=== PATIENT | male | born 1965 | race Caucasian/White ===

== ENCOUNTER 2020-05-29 11:07 | Outpatient (REF) | payer OTHER, SELFPAY | END 2020-05-29 11:08 | disposition home or self-care (01) | LOC: HO.LAB 11:07 | PROVIDERS: PCP Internal Medicine; Visit Provider Internal Medicine | DX: Z20.828 Contact with and (suspected) exposure to other viral communicable diseases (principal) | CPT/HCPCS: C9803; U0003 ==

== ENCOUNTER 2021-08-15 07:12 | Outpatient (REF) | payer OTHER, SELFPAY ==
--- NOTE | ~2021-08-15 | XR_ITS ---
EXAMINATION: BILATERAL KNEES CLINICAL INFORMATION: Bilateral knee pain COMPARISON: None TECHNIQUE: 4 views each knee FINDINGS: Right: Tricompartment spurring is identified. Moderately severe medial knee joint narrowing is seen. Patellofemoral and lateral knee joints are maintained. No sizable effusion is seen. No fracture or dislocation recognized. Left: Moderately severe medial knee joint narrowing seen. Patellofemoral and lateral knee joints are maintained. Tricompartment spurring is seen. No fracture, dislocation or joint effusion recognized. XR/XR knee LT 2V IMPRESSION: Symmetric bilateral knee osteoarthritis.
--- NOTE | ~2021-08-15 | XR_ITS ---
EXAMINATION: BILATERAL KNEES CLINICAL INFORMATION: Bilateral knee pain COMPARISON: None TECHNIQUE: 4 views each knee FINDINGS: Right: Tricompartment spurring is identified. Moderately severe medial knee joint narrowing is seen. Patellofemoral and lateral knee joints are maintained. No sizable effusion is seen. No fracture or dislocation recognized. Left: Moderately severe medial knee joint narrowing seen. Patellofemoral and lateral knee joints are maintained. Tricompartment spurring is seen. No fracture, dislocation or joint effusion recognized. XR/XR knee RT 2V IMPRESSION: Symmetric bilateral knee osteoarthritis.
--- NOTE | ~2021-08-15 | XR_ITS ---
EXAMINATION: BILATERAL KNEES CLINICAL INFORMATION: Bilateral knee pain COMPARISON: None TECHNIQUE: 4 views each knee FINDINGS: Right: Tricompartment spurring is identified. Moderately severe medial knee joint narrowing is seen. Patellofemoral and lateral knee joints are maintained. No sizable effusion is seen. No fracture or dislocation recognized. Left: Moderately severe medial knee joint narrowing seen. Patellofemoral and lateral knee joints are maintained. Tricompartment spurring is seen. No fracture, dislocation or joint effusion recognized. XR/XR knee standing BI IMPRESSION: Symmetric bilateral knee osteoarthritis.
== END 2021-08-15 07:13 | disposition home or self-care (01) ==
LOC: HO.HOSX 07:12
PROVIDERS: Visit Provider Physician Assistant
DX: M17.0 Bilateral primary osteoarthritis of knee (principal)
CPT/HCPCS: 73560; 73565; 99202

== ENCOUNTER 2021-09-01 13:07 | Outpatient (REF) | payer OTHER, SELFPAY ==
--- NOTE | ~2021-09-01 | MR_ITS ---
EXAMINATION: MR KNEE WITHOUT CONTRAST, RIGHT CLINICAL INFORMATION: Right knee pain and swelling. Osteoarthritis. COMPARISON: None TECHNIQUE: MRI of the knee without contrast was performed using routine sequences on a high-field scanner. FINDINGS: MENISCI: Medial Meniscus: Near-complete tear of the posterior horn/root with a few inferior meniscal fibers remaining intact. Tearing measures up to 1.6 cm in ML dimension with medial extrusion of the meniscal body. Intrasubstance degenerative signal with a possible nondisplaced oblique inner margin tear of the meniscal body. Lateral Meniscus: Minimal inner margin fraying of the meniscal body. LIGAMENTS: Cruciate: Intact Collateral: Intact EXTENSOR MECHANISM: Intact ARTICULAR CARTILAGE/BONE: Patellofemoral Compartment: Lateral patellar facet articular cartilage signal heterogeneity and partial-thickness fissuring. Diffuse trochlear articular cartilage thinning with areas of near full-thickness loss. Small marginal osteophytes. Medial Compartment: Diffuse, full-thickness weightbearing articular cartilage loss with mild subchondral cystic change. Marginal osteophytes. Lateral Compartment: Lateral tibial plateau full-thickness articular cartilage fissuring. Small marginal osteophytes. JOINT FLUID AND BURSAE: Small joint effusion and trace Hidalgo's cyst. MR/MR knee RT wo con IMPRESSION: 1. Near-complete tear of the medial meniscus posterior horn/root with a few inferior meniscal fibers remaining intact. There is medial extrusion of the meniscal body with intrasubstance degenerative signal and a possible nondisplaced oblique inner margin tear. 2. Minimal inner margin fraying of the lateral meniscal body. 3. Severe medial as well as moderate patellofemoral and mild lateral compartment osteoarthritis. Small joint effusion and trace Hidalgo's cyst.
== END 2021-09-01 13:08 | disposition home or self-care (01) ==
LOC: HO.MRI 13:07
PROVIDERS: Visit Provider Physician Assistant
DX: M17.11 Unilateral primary osteoarthritis, right knee (principal)
CPT/HCPCS: 73721

== ENCOUNTER → 2021-09-11 08:40 | Outpatient (BNVA) | payer OTHER, SELFPAY | PROVIDERS: PCP Nurse Practitioner Family; Visit Provider Orthopaedic Surgery | DX: M17.0 Bilateral primary osteoarthritis of knee (principal) | CPT/HCPCS: 99212 ==

== ENCOUNTER → 2021-10-27 08:45 | Outpatient (BNVA) | payer OTHER, SELFPAY | PROVIDERS: PCP Nurse Practitioner Family; Visit Provider Orthopaedic Surgery | DX: Z13.89 Encounter for screening for other disorder (principal) ==

== ENCOUNTER 2021-11-19 09:45 | Outpatient (RCR) | payer OTHER, SELFPAY ==
--- NOTE | 2021-11-24 08:25 | MHC.PT.EP ---
[facility] [place] Office [place] Office [place] Office [address] Gautam Hernandez [address] [phone] F: [phone] F: [phone] F: [phone] F: [phone] Physical Therapy Plan of Care Date of Evaluation: Date of Surgery: 11/25/21 Diagnosis: PRE-OP TKA Assessment: Pt IS A PLEASANT 55 YO MALE WHO PRESENTS PRE-OP TOTAL KNEE REPLACEMENT. UPON EXAM HE DEMONSTRATES DECREASED ROM AND STRENGTH, ALTERED GAIT AND INCREASED PAIN. FUNCTIONAL LIMITATIONS INCLUDE DECREASED ABILITY TO PERFORM HOMEMAKING TASKS, WALKING LONG DISTANCES, STAIR CLIMBING. HE REPORTS DECREASED ABILITY TO PERFORM COMMUNITY AND RECREATIONAL ACTIVITIES, DISRUPTED SLEEP. Frequency and Duration: The patient will be seen 1-2 visits Short Term Goals: INITIATE HEP Longterm Goals: INDEPENDENT HEP Treatment Plan: Modalities to reduce pain, spasms and effusion. Manual therapy to restore motion and function. Therapeutic exercise to improve strength and flexibility. Neuromuscular re-education for posture and balance. Therapeutic activities to return to functional activities of daily living. Electronically signed by: YOUSIF WALKER PT, DPT Please sign and return to therapist. Thank you for your referral.
== END 2021-12-12 10:46 | disposition home or self-care (01) ==
LOC: HO.PT 09:45
PROVIDERS: PCP Nurse Practitioner Family; Visit Provider Orthopaedic Surgery
DX: M17.0 Bilateral primary osteoarthritis of knee (principal)
CPT/HCPCS: 97110; 97161

== ENCOUNTER → 2021-11-20 11:17 | Outpatient (BNVA) | payer OTHER, SELFPAY | PROVIDERS: PCP Nurse Practitioner Family; Visit Provider Physician Assistant | DX: Z01.818 Encounter for other preprocedural examination (principal); M17.11 Unilateral primary osteoarthritis, right knee | CPT/HCPCS: 99212 ==

== ENCOUNTER 2021-11-25 07:19 | Inpatient (IN) | payer OTHER, SELFPAY ==
[2021-10-27 10:07] LABS: MANUAL DIFF FLAG NO
--- NOTE | 2021-10-27 10:14 | ECG_ITS ---
Test Reason : z01.810 Blood Pressure : / mmHG Vent. Rate : 053 BPM Atrial Rate : 053 BPM P-R Int : 158 ms QRS Dur : 098 ms QT Int : 428 ms P-R-T Axes : 046 -34 057 degrees QTc Int : 401 ms Sinus bradycardia Left axis deviation Minimal voltage criteria for LVH, may be normal variant ( R in aVL ) Abnormal ECG When compared with ECG of 11-MAY-2017 10:03, No significant change was found Referred By: Rhys Nicolas Electronically Signed By:LIVIA DARNELL
[2021-10-27 10:16] LABS: Basophils Percent Auto 0.6 % (0-2); Eosinophils Absolute Auto 0.1 X10*3/uL (0.0-0.4); Eosinophils Percent Auto 1.3 % (0-4); Hematocrit 43.5 % (42.0-52.0); Hemoglobin 14.4 g/dl (14.0-18.0); Imm Gran Abs Auto 0.01 X10*3/uL (0.00-0.03); Imm Gran Pct Auto 0.1 % (0.0-0.4); Lymphocytes Absolute Auto 1.8 X10*3/uL (1.2-4.9); Lymphocytes Percent Auto 26.3 % (20-40); Mean Corpuscular HGB Conc 33.1 g/dl (31.0-36.0); Mean Corpuscular Hemoglobin 30.4 pg (27.0-33.0); Mean Platelet Volume 10.5 fL (9.4-12.4); Monocytes Absolute Auto 0.6 X10*3/uL (0.1-1.2); Monocytes Percent Auto 8.2 % (2-11); Neutrophils Absolute Auto 4.4 x10*3/uL (2.0-8.3); Neutrophils Percent Auto 63.5 % (45-73); Platelet Count 229 X10*3/uL (160-400); Red Blood Count 4.73 X10*6/uL (4.60-5.80); Red Cell Distribution Width 11.4 % (11.0-16.0); White Blood Count 6.9 X10*3/uL (4.8-10.8)
[2021-10-27 10:55] LABS: Anion Gap 11 (12-20); Blood Urea Nitrogen 12 mg/dL (9-16); Calcium 9.7 mg/dL (8.4-10.2); Carbon Dioxide 28 mmol/L (22-29); Chloride 104 mmol/L (96-108); Estimated Glomerular Filt Rate > 60; Glucose Random 88 mg/dL (60-115); Potassium 4.2 mmol/L (3.3-5.1); Sodium 139 mmol/L (135-145)
[2021-11-14 12:05] VITALS: BP 146/82; PULSE 70; RESP 20; O2SAT 97; BMI 34.7
--- NOTE | 2021-11-14 12:13 | P.CONAN_ITS ---
Documented by User: Cindy Loera NP 11/24/21 09:09 HPI - Anesthesia Eval Consult details Narrative: 55yo M for Right Knee Replacement Total 11/25/21 PCP cleared [facility] Active Problems Active Problems: All Active Problems (Updated 11/14/21 @ 12:03 by Zofia Bravo RN) Osteoarthritis of right knee (Acute) Bilateral primary osteoarthritis of knee (Acute) Past Medical History Medical History Asthma High blood pressure Family History Family history of problems with anesthesia: No Surgical History Surgical History History of umbilical hernia repair Hx of colonoscopy History of Problems with Anesthesia: No Social History Social History Are you a primary careers adviser to a significant other at home: No Do you presently have visiting nurse or other home services: No Patient Tobacco Use Status: Never used Tobacco Second Hand Smoke Exposure: No Use of substances other than those prescribed or required for medical reasons: No Currently Displaying Signs/Symptoms of Drug Intoxication Withdrawal: No Have you been hit, kicked, punched, or otherwise hurt by someone within the past year? 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 Asthma stable Meds Allergies Allergy/AdvReac Type Severity Reaction Status Date / Time No Known Allergies Allergy Verified 11/20/21 12:46 [No Known Allergies*] Home Medications Medication Instructions Recorded Confirmed Last Taken Type albuterol sulfate 90 mcg/actuation 2 puff inhalation Q4H PRN wheezing 08/15/21 11/13/21 Unknown History aerosol inhaler (Ventolin HFA) hydrochlorothiazide 25 mg tablet 25 mg PO QAM 08/15/21 11/13/21 Unknown History nabumetone 750 mg tablet 750 mg PO BID PRN pain 08/15/21 11/13/21 Unknown History olmesartan 5 mg tablet 1 tab PO QAM blood pressure 06/02/22 06/02/22 Unknown History Exam Exam Date and Time: November 14, 2021 1213 Height,Weight and Vital Signs: Height 6 ft 2 in Weight 122.47 kg Last Vital Signs Pulse 70 11/14/21 12:05 Resp 20 11/14/21 12:05 BP 146/82 H 11/14/21 12:05 Pulse Ox 97 11/14/21 12:05 Pertinent Lab Results Pertinent Lab Results: Laboratory Tests 10/27/21 10/27/21 10:06 10:06 WBC 6.9 RBC 4.73 Hgb 14.4 Hct 43.5 MCV 92.0 MCH 30.4 MCHC 33.1 RDW 11.4 Plt Count 229 MPV 10.5 Immature Gran % (Auto) 0.1 Neut % (Auto) 63.5 Lymph % (Auto) 26.3 [place] % (Auto) 8.2 Eos % (Auto) 1.3 Baso % (Auto) 0.6 Lymph # (Auto) 1.8 [place] # (Auto) 0.6 Eos # (Auto) 0.1 Baso # (Auto) 0.0 Abs Immat Gran (auto) 0.01 Absolute Neuts (auto) 4.4 Absolute Nucleated RBC 0.000 Nucleated RBC % (auto) 0.0 Sodium 139 Potassium 4.2 Chloride 104 Carbon Dioxide 28 Anion Gap 11 L BUN 12 Creatinine 0.99 Estim Creat Clear Calc TNP Estimated GFR > 60 Random Glucose 88 Calcium 9.7 Narrative Narrative: EKG 10/2021 Vent. Rate : 053 BPM ? ? Atrial Rate : 053 BPM ?? P-R Int : 158 ms? QRS Dur : 098 ms ? ? QT Int : 428 ms ? ? ? P-R-T Axes : 046 -34 057 degrees ?? QTc Int : 401 ms ? Sinus bradycardia Left axis deviation Minimal voltage criteria for LVH, may be normal variant ( R in aVL ) Abnormal ECG When compared with ECG of 11-MAY-2017 10:03, No significant change was found Repeat EKG at [facility] 11/2021 = NSR @ 78 Airway Mallampati Class: II TM Dist: >3cm Neck ROM: Full Partial: Upper Heart: RRR Lungs: CTAB Assessment and Plan Assessment Anesthesia Assessment: Anesthesia Plan Discussed and PAT Visit Final Anesthetic Review Family History of Problems with Anesthesia: No History of Problems with Anesthesia: No Documented by User: Roderick Tan MD 11/25/21 17:16 PMF Past Medical History Medical History Asthma High blood pressure Surgical History Surgical History History of umbilical hernia repair Hx of colonoscopy Social History Social History Are you a primary careers adviser to a significant other at home: No Do you presently have visiting nurse or other home services: No Patient Tobacco Use Status: Never used Tobacco Second Hand Smoke Exposure: No Use of substances other than those prescribed or required for medical reasons: No Currently Displaying Signs/Symptoms of Drug Intoxication Withdrawal: No Have you been hit, kicked, punched, or otherwise hurt by someone within the past year? 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 Meds Allergies Allergy/AdvReac Type Severity Reaction Status Date / Time No Known Allergies Allergy Verified 11/20/21 12:46 [No Known Allergies*] Home Medications Medication Instructions Recorded Confirmed Last Taken Type albuterol sulfate 90 mcg/actuation 2 puff inhalation Q4H PRN wheezing 08/15/21 11/13/21 Unknown History aerosol inhaler (Ventolin HFA) hydrochlorothiazide 25 mg tablet 25 mg PO QAM 08/15/21 11/13/21 Unknown History nabumetone 750 mg tablet 750 mg PO BID PRN pain 08/15/21 11/13/21 Unknown History olmesartan 5 mg tablet 1 tab PO QAM blood pressure 11/13/21 11/13/21 Unknown History Exam Airway Loose/Missing/Broken Teeth: Yes (Chipped teeth ) Assessment and Plan Assessment Anesthesia Assessment: Chart Reviewed Final Anesthetic Review NPO: Yes ASA Class: III Final Preanesthetic Review: Meds/Allgs Chart Reviewed, Consent Obtained/Reviewed and Anes Risks/Benef Reviewed Patient Risk: Intermediate Procedure Risk: Intermediate Anesthetic Plan Anesthetic Plan: Spinal and Regional Block Disposition: Inp. Admit - Standard Bed
[2021-11-14 15:11] LABS: MRSA Nasal PCR NEGATIVE (Negative); SA Nasal PCR NEGATIVE (Negative)
[2021-11-25] VITALS (12 sets, daily range): BP systolic 103–168; BP diastolic 60–92; PULSE 45–82; RESP 14–19; TEMP 36.1–36.9; O2SAT 95–99
--- NOTE | ~2021-11-25 | XR_ITS ---
EXAMINATION: XR KNEE, RIGHT CLINICAL INFORMATION: Right TKA. COMPARISON: None TECHNIQUE: Two views of the right knee. FINDINGS: There is a total right knee arthroplasty with prosthetic components in satisfactory alignment. There are immediate postoperative changes with gas and surgical michelle along the anterior knee. XR/XR knee RT 2V IMPRESSION: Status post total right knee arthroplasty with prosthetic components in satisfactory alignment.
[2021-11-25 08:15] LABS: Hematocrit 42.3 % (42.0-52.0); Hemoglobin 14.2 g/dl (14.0-18.0)
[2021-11-25 08:22] LABS: COVID-19 Test Negative (Negative); IDNOW Serial# 16C4AD1C
[2021-11-25] MEDS: Lactated Ringers 1,000 ML 100 ML IVCONT ×3 (08:45→23:41)
--- NOTE | 2021-11-25 11:22 | PHA.MEDREC ---
Pharmacy Consult ? Medication Reconciliation Pharmacy has reviewed the medication reconciliation compelted by nursing.
--- NOTE | 2021-11-25 11:48 | MHC.SHP ---
Pre-Procedural Eval Section A Date of Service: 11/25/21 The patient is an INPATIENT: No Changes since office visit: Yes Patient answered all questions; No Cold of Flu in the past 2 weeks, No New Medical Problems and No Changes in Medication The History & Physical has been completed within 30 days and I have reviewed it.: Yes Section B Chief Complaint: RT TKA Allergies: Allergies Allergy/AdvReac Type Severity Reaction Status Date / Time No Known Allergies Allergy Verified 11/20/21 12:46 [No Known Allergies*] Plan I have reviewed the history and physical and performed a pertinent physical examination on my patient. No changes have occurred unless specified.
--- NOTE | 2021-11-25 13:48 | P.BOP_ITS ---
Brief Operative Note Date of Service: 11/25/21 Pre-op diagnosis: Right knee arthritis Post-op diagnosis: same Procedure: Right TKA Implants: [place] [employer] press fit cruciate retaining 09/16/34 Surgeon: Rhys Nicolas MD Anesthesia: regional and spinal Was an Branch Director used for this Procedure?: Yes Branch Director: Farhana Bender Estimated blood loss (mL): 150 IV fluids (mL): 1,000 Pathology: other Condition: stable Disposition: PACU
[2021-11-25] MEDS: oxyCODONE HCl Immed Release 5 MG TABLET PO (14:55)
--- NOTE | 2021-11-25 15:27 | P.CONHOSP_ITS ---
History of Present Illness Data of Consult Service Date: 11/25/21 Requesting physician: Rhys Nicolas Primary Care Provider: Unknown Physician HPI 56-year-old man with history of asthma, hypertension admitted by orthopedic surgery and is postop right total knee arthroplasty. Surgery was unremarkable. Patient has been able to eat and drink without any nausea patient reports a moderate amount of pain he is currently resting in bed. Vital signs are stable. Review of Systems Review of Systems: Denies any recent fever chills or decrease in appetite respiratory denies any shortness of breath coverage production cardiovascular Chest pain gastrointestinal denies any dysphagia abdominal pain nausea vomiting or olga rrhea genitourinary denies any dysuria frequency or hematuria musculoskeletal pain to right knee neuropsych denies any weakness or seizures all other systems reviewed are negative [facility] Medical History Asthma High blood pressure Surgical History History of umbilical hernia repair Hx of colonoscopy Social History Are you a primary day care provider to a significant other at home: No Do you presently have visiting nurse or other home services: No Patient Tobacco Use Status: Never used Tobacco Second Hand Smoke Exposure: No Use of substances other than those prescribed or required for medical reasons: No Currently Displaying Signs/Symptoms of Drug Intoxication Withdrawal: No Have you been hit, kicked, punched, or otherwise hurt by someone within the past year? 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 Meds Allergies Allergy/AdvReac Type Severity Reaction Status Date / Time No Known Allergies Allergy Verified 11/20/21 12:46 [No Known Allergies*] Active Medications: Current Medications Acetaminophen (Acetaminophen 325 Mg Tablet) 650 mg PO Q6H PRN PRN Reason: Pain, Mild (Pain Scale 1-3) Albuterol Sulfate (Albuterol Sulfate 90 Mcg 8 Gm Inhaler) 2 puff INHALE Q4H PRN PRN Reason: wheezing Aspirin (Aspirin 325 Mg Tablet) 325 mg PO BID [facility] Celecoxib (Celecoxib 200 Mg Capsule) 200 mg PO BID [facility] Docusate Sodium (Docusate Sodium 100 Mg Capsule) 100 mg PO BID [facility] Hydromorphone HCl (Hydromorphone Hcl 1 Mg/Ml Syringe) 0.25 mg IVPUSH Q4H PRN; Protocol PRN Reason: Pain, Severe (Pain Scale 7-10) Lactated Ringer's (Lr) 1,000 mls @ 100 mls/hr IVCONT .Q10H [facility] Last Admin: 11/25/21 14:14 Dose: 100 mls/hr Cefazolin Sodium/Dextrose (Ancef) 2 gm in 50 mls @ 100 mls/hr IV ONCE@1800 [facility] Stop: 11/25/21 18:29 Ondansetron HCl (Ondansetron Hcl 4 Mg/2 Ml Vial) 4 mg IVPUSH Q8H PRN PRN Reason: Nausea and Vomiting Oxycodone HCl (Oxycodone Hcl Immed Release 5 Mg Tablet) 10 mg PO Q4H PRN PRN Reason: Pain, Moderate (Pain Scale 4-6 Oxycodone HCl (Oxycodone Hcl Er 10 Mg Tab.Er.12h) 10 mg PO BID [facility] Sodium Chloride (0.9 % Sodium Chloride Flush 3 Ml Syringe) 3 ml IVFLUSH QSHIFT [facility] Home Medications Medication Instructions Recorded Confirmed Last Taken Type albuterol sulfate 90 mcg/actuation 2 puff inhalation Q4H PRN wheezing 08/15/21 11/13/21 Unknown History aerosol inhaler (Ventolin HFA) hydrochlorothiazide 25 mg tablet 25 mg PO QAM 08/15/21 11/13/21 Unknown History nabumetone 750 mg tablet 750 mg PO BID PRN pain 08/15/21 11/13/21 Unknown H istory olmesartan 5 mg tablet 1 tab PO QA blood pressure 11/13/21 11/13/21 Unknown History Physical Exam Vital Signs and Narrative: Vital Signs: Last Vital Signs Temp 97.6 F 11/25/21 15:14 Pulse 53 11/25/21 15:14 Resp 18 11/25/21 15:14 BP 153/82 H 11/25/21 15:14 Pulse Ox 99 11/25/21 15:14 O2 Del Method 11/25/21 15:14 O2 Flow Rate 4 11/25/21 13:46 BMI result Body Mass Index 34.7 Appearing in no acute distress head is normocephalic atraumatic eyes pupils are PERRLA sclera is anicteric mouth throat mucous membranes are intact and moist neck is supple no lymphadenopathy, no JVD noted lung sounds are clear to auscultation heart regular rate rhythm, clear S1, S2 positive bowel sounds, abdomen is soft, nontender neuro patient is alert x3, no focal deficits right knee surgical dressing intact, wound not visualized Results Labs CBC and Chem 7: 11/25/21 08:09 10/27/21 10:06 Labs: Laboratory Results - last 24 hr 11/25/21 07:50 COVID-19 ([facility]ANNY) Negative COVID-19 Clin Com See Note Assessment and Plan (1) Osteoarthritis of right knee: Status: Acute Plan 56-year-old man admitted by Orthopedic surgery and is status post total right knee arthroplasty Total right knee arthroplasty Management as per surgical team Pain management Asthma. No exacerbation Continue albuterol as needed Hypertension. Stable blood pressure Continue hydrochlorothiazide and olmesartan DVT prophylaxis with full-dose aspirin Attending Dr. Cardoso Full code
[2021-11-25] MEDS: HYDROmorphone HCl 0.5 MG/0.5 ML SYRINGE 0.25 MG IVPUSH (16:38)
[2021-11-25] MEDS: ceFAZolin Sodium/Dextrose,Iso 2 GM/50 ML PIGGYBACK IV (17:13)
[2021-11-25] MEDS: oxyCODONE HCl Immed Release 5 MG TABLET 10 MG PO (18:11)
[2021-11-25] MEDS: Celecoxib 200 MG CAPSULE PO (20:17)
[2021-11-25] MEDS: 0.9 % Sodium Chloride Flush 3 ML SYRINGE IVFLUSH (20:17)
[2021-11-25] MEDS: oxyCODONE HCl ER 10 MG TAB.ER.12H PO (20:17)
[2021-11-25] MEDS: Ketorolac Tromethamine 30 MG/ML VIAL IVPUSH (20:17)
[2021-11-25] MEDS: Docusate Sodium 100 MG CAPSULE PO (20:17)
[2021-11-25] MEDS: HYDROmorphone HCl 0.5 MG/0.5 ML SYRINGE IVPUSH (22:18)
[2021-11-26] VITALS (12 sets, daily range): BP systolic 128–142; BP diastolic 61–74; PULSE 71–85; RESP 16–18; TEMP 35.2–37.6; O2SAT 92–95
[2021-11-26] MEDS: HYDROmorphone HCl 0.5 MG/0.5 ML SYRINGE IVPUSH ×2 (03:27→10:43)
[2021-11-26] MEDS: oxyCODONE HCl Immed Release 5 MG TABLET 10 MG PO ×2 (06:02→23:42)
[2021-11-26 06:16] LABS: MANUAL DIFF FLAG NO
[2021-11-26 06:41] LABS: Basophils Percent Auto 0.2 % (0-2); Eosinophils Absolute Auto 0.2 X10*3/uL (0.0-0.4); Eosinophils Percent Auto 1.6 % (0-4); Hematocrit 37.5 % (42.0-52.0); Hemoglobin 12.7 g/dl (14.0-18.0); Imm Gran Abs Auto 0.04 X10*3/uL (0.00-0.03); Imm Gran Pct Auto 0.4 % (0.0-0.4); Lymphocytes Absolute Auto 1.6 X10*3/uL (1.2-4.9); Lymphocytes Percent Auto 15.1 % (20-40); Mean Corpuscular HGB Conc 33.9 g/dl (31.0-36.0); Mean Corpuscular Hemoglobin 30.8 pg (27.0-33.0); Mean Corpuscular Volume 90.8 fL (80.0-98.0); Mean Platelet Volume 10.6 fL (9.4-12.4); Monocytes Absolute Auto 0.8 X10*3/uL (0.1-1.2); Monocytes Percent Auto 7.9 % (2-11); Neutrophils Absolute Auto 7.9 x10*3/uL (2.0-8.3); Neutrophils Percent Auto 74.8 % (45-73); Platelet Count 235 X10*3/uL (160-400); Red Blood Count 4.13 X10*6/uL (4.60-5.80); Red Cell Distribution Width 11.7 % (11.0-16.0); White Blood Count 10.5 X10*3/uL (4.8-10.8)
[2021-11-26 06:54] LABS: Anion Gap 12 (12-20); Blood Urea Nitrogen 12 mg/dL (9-16); Calcium 8.6 mg/dL (8.4-10.2); Carbon Dioxide 26 mmol/L (22-29); Chloride 100 mmol/L (96-108); Creatinine Clr Calc Pharmacy 122.3; Estimated Glomerular Filt Rate > 60; Glucose Fasting 112 mg/dL (60-99); Sodium 134 mmol/L (135-145)
--- NOTE | 2021-11-26 07:37 | P.PNOP_ITS ---
Subjective Subjective Date of Service: 11/26/21 Interval history: Pt is POD1 for a RTK No overnight events The patient had some continued discomfort over night, medication were adjusted this morning with some improvement in pain. Overall pt is feeling well, eating, urinating and passing gas. He is hopeful on going home today, therapy is pending for today. Physical Exam Vital Signs: Vital Signs: Last Vital Signs Temp 99.6 F 11/26/21 07:13 Pulse 79 11/26/21 07:13 Resp 16 11/26/21 07:13 BP 140/74 H 11/26/21 07:13 Pulse Ox 92 11/26/21 07:13 O2 Del Method 11/26/21 07:13 O2 Flow Rate 4 11/25/21 13:46 BMI result Body Mass Index 34.7 Const: General: cooperative, healthy appearing and no acute distress Resp: Effort & Inspection: normal respiratory effort and able to speak in complete sentences Cardio: Rate: regular rate Peripheral pulses: Peripheral pulses 2+ throughout GI: Palpation (GI): Soft to palpation Skin: General skin exam: no rashes or lesions noted Extrem: Other: bandagen clean dry and intact. [place] intact. No erythema or joint effusion. Calf supple nontender. Neurovascularly intact. Procedures Date of Service Date of Service: 11/26/21 Progress Note: A&P Assessment and plan (1) Status post total right knee replacement: Status: Acute Assessment and Plan: * Continue pain mgmnt * Begin Aspirin for dvt ppx * begin PT for RT TKA * Dispo planning-Pending PT eval, pain mgmnt Time Spent With Patient Time: Total time spent is greater than 50% in coordination of care (as documented) at patient's floor/unit and/or counseling patient: Quality Stroke Does the patient have a stroke diagnosis?: No VTE Prior VTE?: No VTE Risk Level:: Surgical - very high VTE Device Contraindication: N/A - Device Ordered VTE Drug Contraindication: N/A - Med Ordered
[2021-11-26] MEDS: Celecoxib 200 MG CAPSULE PO ×2 (07:59→20:20)
[2021-11-26] MEDS: Docusate Sodium 100 MG CAPSULE PO ×2 (07:59→20:20)
[2021-11-26] MEDS: 0.9 % Sodium Chloride Flush 3 ML SYRINGE IVFLUSH ×3 (08:04→20:21)
[2021-11-26] MEDS: Acetaminophen 325 MG TABLET 650 MG PO (09:20)
[2021-11-26] MEDS: oxyCODONE HCl ER 10 MG TAB.ER.12H PO ×2 (09:21→20:21)
--- NOTE | 2021-11-26 09:57 | HO.POSTANES ---
Post Anesthesia Evaluation Post Anesthesia Evaluation Vital Signs: Vital Signs Temp Pulse Resp BP Pulse Ox O2 Del Method 11/26/21 07:13 99.6 F 79 16 140/74 H 92 Room Air 11/26/21 04:00 18 11/26/21 03:17 98.1 F 80 17 133/71 93 Room Air 11/26/21 00:00 98.8 F 71 16 130/68 94 Anesthesia: Spinal and Nerve Block Mental Status: Awake Pain Control: Satisfactory Nausea/Vomiting: None Hydration: Adequate Anesthesia-Related Issues: No Anes. Related Issues
--- NOTE | 2021-11-26 11:49 | MHC.CM.PN ---
Patient s/p TKR. Met with patient who reports he lives with in 3rd floor apartment, no elevator access. Apartment all on one level once in home. assists with stairs, patient was also requiring some assistance with lower body dressing prior to surgery, has RW at home. Patient is agreeable to [facility] for PT in the home and chose [facility]. Referral made and [facility] accepted patient. to drive home. Assisted patient in completing HCP, he chose his as HCP. Gave patient original and copies and placed a copy in the chart.
--- NOTE | 2021-11-26 12:26 | HO.PM.IMPN ---
Subjective Subjective Date of Service: 11/26/21 Interval History: complaining of right knee pain, no other acute issues overnight, noted to have elevated blood pressure this morning that improved without antihypertensive, noted to have drop in hematocrit but stable. Review of Systems CALL CENTER CONSULTANT no headache no dizziness CVS no chest pain, no palpitation GI no nausea, no vomiting, no diarrhea no urinary urgency, no dysuria Review of Systems: Yes all other systems are reviewed and are negative Physical Exam Vital Signs: Vital Signs: Last Vital Signs Temp 98.3 F 11/26/21 11:21 Pulse 78 11/26/21 11:21 Resp 16 11/26/21 11:21 BP 134/72 11/26/21 11:21 Pulse Ox 93 11/26/21 11:21 O2 Del Method 11/26/21 11:21 O2 Flow Rate 4 11/25/21 13:46 BMI result Body Mass Index 34.7 Const: Other: General awake alert,no acute distress. Neck no JVD. CVS regular rate rhythm, Respiratory lungs clear to auscultation, no respiratory distress, no wheeze, no rhonchi. Gastrointestinal abdomen soft, nontender, bowel sounds audible Extremities no edema. right knee dressing in place Neuro nonfocal Skin no rash psych appropriate affect Objective Data Active Medications Acetaminophen (Acetaminophen 325 Mg Tablet) 650 mg PO Q6H PRN PRN Reason: Pain, Mild (Pain Scale 1-3) Last Admin: 11/26/21 09:20 Dose: 650 mg Documented By: JACE Albuterol Sulfate (Albuterol Sulfate 90 Mcg 8 Gm Inhaler) 2 puff INHALE Q4H PRN PRN Reason: wheezing Aspirin (Aspirin 325 Mg Tablet) 325 mg PO BID [facility] Celecoxib (Celecoxib 200 Mg Capsule) 200 mg PO BID [facility] Last Admin: 11/26/21 07:59 Dose: 200 mg Documented By: JACE Docusate Sodium (Docusate Sodium 100 Mg Capsule) 100 mg PO BID [facility] Last Admin: 11/26/21 07:59 Dose: 100 mg Documented By: JACE Hydromorphone HCl (Hydromorphone Hcl 0.5 Mg/0.5 Ml Syringe) 0.5 mg IVPUSH Q4H PRN; Protocol PRN Reason: Pain, Severe (Pain Scale 7-10) Last Admin: 11/26/21 10:43 Dose: 0.5 mg Documented By: CONY Ondansetron HCl (Ondansetron Hcl 4 Mg/2 Ml Vial) 4 mg IVPUSH Q8H PRN PRN Reason: Nausea and Vomiting Oxycodone HCl (Oxycodone Hcl Immed Release 5 Mg Tablet) 10 mg PO Q4H PRN PRN Reason: Pain, Moderate (Pain Scale 4-6 Last Admin: 11/26/21 06:02 Dose: 10 mg Documented By: HUAN Oxycodone HCl (Oxycodone Hcl Er 10 Mg Tab.Er.12h) 10 mg PO BID [facility] Last Admin: 11/26/21 09:21 Dose: 10 mg Documented By: JACE Sodium Chloride (0.9 % Sodium Chloride Flush 3 Ml Syringe) 3 ml IVFLUSH QSHIFT [facility] Last Admin: 11/26/21 08:04 Dose: 3 ml Documented By: JACE Labs CBC & Chem 7: 11/26/21 05:35 11/26/21 05:35 Labs: Laboratory Results - last 24 hr 11/26/21 11/26/21 05:35 05:35 MCV 90.8 MCH 30.8 MCHC 33.9 RDW 11.7 Plt Count 235 MPV 10.6 Immature Gran % (Auto) 0.4 Neut % (Auto) 74.8 H Lymph % (Auto) 15.1 L [place] % (Auto) 7.9 Eos % (Auto) 1.6 Baso % (Auto) 0.2 Lymph # (Auto) 1.6 [place] # (Auto) 0.8 Eos # (Auto) 0.2 Baso # (Auto) 0.0 Abs Immat Gran (auto) 0.04 H Absolute Neuts (auto) 7.9 Absolute Nucleated RBC 0.000 Nucleated RBC % (auto) 0.0 Anion Gap 12 Estim Creat Clear Calc 122.3 Estimated GFR > 60 Fasting Glucose 112 H Calcium 8.6 D Assessment and Plan (1) Status post total right knee replacement: Status: Acute Plan 56-year-old man admitted by Orthopedic surgery and is status post total right knee arthroplasty Total right knee arthroplasty postoperative day 1 noted to have drop in hematocrit, but stable continue current pain management and anticoagulation as per Ortho follow CBC/ encourage incentive spirometry DC IV fluids/ continue bowel regimen Asthma.? No exacerbation Continue albuterol as needed Hypertension.? Stable blood pressure present,hold hydrochlorothiazide and olmesartan, resume once noted to have elevated BP DVT prophylaxis with full-dose aspirin Full code continued inpatient hospitalization as per Orthopedic surgeon. Quality Stroke Does the patient have a stroke diagnosis?: No VTE Prior VTE?: No VTE Risk Level:: Surgical - very high VTE Device Contraindication: N/A - Device Ordered VTE Drug Contraindication: N/A - Med Ordered
[2021-11-26] MEDS: Aspirin 325 MG TABLET PO (20:20)
[2021-11-27 03:48] VITALS: BP 126/61; PULSE 80; RESP 17; TEMP 36.8; O2SAT 92
[2021-11-27 06:21] LABS: MANUAL DIFF FLAG NO
[2021-11-27 06:25] LABS: Basophils Percent Auto 0.3 % (0-2); Eosinophils Absolute Auto 0.2 X10*3/uL (0.0-0.4); Eosinophils Percent Auto 1.5 % (0-4); Hematocrit 36.5 % (42.0-52.0); Hemoglobin 12.4 g/dl (14.0-18.0); Imm Gran Abs Auto 0.07 X10*3/uL (0.00-0.03); Imm Gran Pct Auto 0.6 % (0.0-0.4); Lymphocytes Absolute Auto 1.4 X10*3/uL (1.2-4.9); Lymphocytes Percent Auto 12.2 % (20-40); Mean Corpuscular Hemoglobin 30.5 pg (27.0-33.0); Mean Corpuscular Volume 89.9 fL (80.0-98.0); Mean Platelet Volume 10.5 fL (9.4-12.4); Monocytes Percent Auto 8.3 % (2-11); Neutrophils Percent Auto 77.1 % (45-73); Platelet Count 215 X10*3/uL (160-400); Red Blood Count 4.06 X10*6/uL (4.60-5.80); Red Cell Distribution Width 11.6 % (11.0-16.0); White Blood Count 11.6 X10*3/uL (4.8-10.8)
[2021-11-27 06:53] LABS: Anion Gap 12 (12-20); Blood Urea Nitrogen 12 mg/dL (9-16); Calcium 8.8 mg/dL (8.4-10.2); Carbon Dioxide 29 mmol/L (22-29); Chloride 99 mmol/L (96-108); Creatinine Clr Calc Pharmacy 123.6; Estimated Glomerular Filt Rate > 60; Glucose Fasting 122 mg/dL (60-99); Sodium 136 mmol/L (135-145)
[2021-11-27 07:38] VITALS: BP 133/64; PULSE 83; RESP 15; TEMP 37.2; O2SAT 95
[2021-11-27] MEDS: Acetaminophen 325 MG TABLET 650 MG PO (07:42)
--- NOTE | 2021-11-27 07:55 | P.DS_ITS ---
DS: Providers Provider Date of Service: 11/27/21 Date of admission: 11/25/21 07:19 Primary care physician: Sherrill Marques NP Consults: 11/25/21 15:13 Consult to Hospitalist Routine Consulting Provider: Hospitalist Reason For Exam: htn DS: Diagnosis Discharge Diagnosis (1) Status post total right knee replacement: Status: Acute DS: Summary Hospital Course Hospital Course: The patient underwent a successful right total knee arthroplasty, was transferred to PACU and then to the floor to recover. During their stay, their vitals were stable, afebrile at 98.9. Labs were unremarkable, H/H 12.4/36.5. POD 1 he was started on ASA for DVT ppx, they also received PT services twice a day. Prior to discharge, their dressing was change, incision clean dry and intact, new Aquacel dressing applied and the plan was to be discharged home with vna Time Spent with Patient Time attestation: Total time spent providing and/or coordinating discharge services: Discharge coordination time: Less than 30 minutes Quality: Safe Use of Opioids Does Pt have an Active Cancer Diagnosis on the Problem List?: No Quality: Stroke Does the patient have a stroke diagnosis?: No Physical Exam Vital Signs: Vital Signs: Last Vital Signs Temp 98.9 F 11/27/21 07:38 Pulse 83 11/27/21 07:38 Resp 15 11/27/21 07:38 BP 133/64 11/27/21 07:38 Pulse Ox 95 11/27/21 07:38 O2 Del Method 11/27/21 07:38 O2 Flow Rate 4 11/25/21 13:46 BMI result Body Mass Index 34.7 Const: General: cooperative, healthy appearing and no acute distress Resp: Effort & Inspection: normal respiratory effort and able to speak in complete sentences Cardio: Rate: regular rate Peripheral pulses: Peripheral pulses 2+ throu ghout GI: Palpation (GI): Soft to palpation Skin: General skin exam: no rashes or lesions noted Extrem: Other: incision clean dry and intact. Khurram intact. No erythema or joint effusion. Calf supple nontender. Neurovascularly intact. DS: Data Data Completed and Pending Pending studies at discharge: Pending at discharge 11/25/21 13:04 Surgical [PTH] Routine Labs on day of discharge: Laboratory Results - last 24 hr 11/27/21 11/27/21 05:54 05:54 WBC 11.6 H RBC 4.06 L Hgb 12.4 L Hct 36.5 L MCV 89.9 MCH 30.5 MCHC 34.0 RDW 11.6 Plt Count 215 MPV 10.5 Immature Gran % (Auto) 0.6 H Neut % (Auto) 77.1 H Lymph % (Auto) 12.2 L [place] % (Auto) 8.3 Eos % (Auto) 1.5 Baso % (Auto) 0.3 Lymph # (Auto) 1.4 [place] # (Auto) 1.0 Eos # (Auto) 0.2 Baso # (Auto) 0.0 Abs Immat Gran (auto) 0.07 H Absolute Neuts (auto) 9.0 H Absolute Nucleated RBC 0.000 Nucleated RBC % (auto) 0.0 Sodium 136 Potassium 4.0 Chloride 99 Carbon Dioxide 29 Anion Gap 12 BUN 12 Creatinine 0.95 Estim Creat Clear Calc 123.6 Estimated GFR > 60 Fasting Glucose 122 H Calcium 8.8 Discharge Plan Discharge Patient Disposition: Home Health Service Discharge Diagnosis: rt tka Referrals: Lili Gaines PA-C [Physician Environmental Manager] - 2 Weeks (12/11/21 10:00 [facility] Lili Gaines PA-C) Discharge Medications: New docusate sodium 100 mg Capsule 100 mg PO BID 14 Days Qty: 28 0RF oxycodone 10 mg tablet 10 mg PO Q4H PRN (Reason: Pain, Moderate (Pain Scale 4-6) 7 Days Qty: 42 0RF Rx Instructions: Partial Fill upon patient request. celecoxib 200 mg Capsule 200 mg PO BID 30 Days Qty: 60 0RF acetaminophen 325 mg Tablet 650 mg PO Q6H PRN (Reason: Pain, Mild (Pain Scale 1-3)) 30 Days Qty: 240 0RF aspirin 325 mg Tablet 325 mg PO BID 42 Days Qty: 84 0RF Continued (PIOTR) phill Mercer See Rx Instructions .MEDSUPPLY Qty: 1 0RF Rx Instructions: Eamon pollock olmesartan 5 mg tablet 1 tab PO QAM albuterol sulfate [Ventolin HFA] 90 mcg/actuation HFA aerosol inhaler 2 puff inhalation Q4H PRN (Reason: wheezing) hydrochlorothiazide 25 mg tablet 25 mg PO QAM nabumetone 750 mg tablet 750 mg PO BID PRN (Reason: pain) Discharge Orders: Discharge Order (Routine); Ordered 11/27/21 Ordered By: Farhana Bender Diet: regular diet Activity on Discharge: Use cane or walker Stand Alone Forms: Patient Portal Discharge page Care Plan Goals: Restore function of joint Health Concerns: none Plan of Treatment: Physical Therapy Pain management DVT prophylaxis Assessment: Physical Therapy for Total knee arthroplasty: WBAT, gait training, ROM 0-12, quad strength * Limit stair climbing * No showering, no tub bath-keep dressing clean, dry and intact * No driving x6 weeks * Continue Aspirin twice a day x 6 weeks * Follow up with [facility] in 2 weeks: * --you will also have your first out patient PT eval on the day of your post op appt-so please plan on being in the office that day for an extended period of time.
[2021-11-27] MEDS: oxyCODONE HCl ER 10 MG TAB.ER.12H PO (09:46)
[2021-11-27] MEDS: Aspirin 325 MG TABLET PO (09:47)
[2021-11-27] MEDS: Celecoxib 200 MG CAPSULE PO (09:47)
[2021-11-27] MEDS: 0.9 % Sodium Chloride Flush 3 ML SYRINGE IVFLUSH (09:47)
--- NOTE | 2021-11-27 11:01 | HO.PM.IMPN ---
Subjective Subjective Date of Service: 11/27/21 Interval History: Just returned from physical therapy ambulated in hallway complaining of right knee pain otherwise denies lightheadedness dizziness, no chest pain, no palpitation, no shortness of breath, no other acute events overnight. Review of Systems PMO MANAGER no headache no dizziness CVS no chest pain general no fevers no chills GI no nausea, no vomiting, no diarrhea Review of Systems: Yes all other systems are reviewed and are negative Physical Exam Vital Signs: Vital Signs: Last Vital Signs Temp 98.9 F 11/27/21 07:38 Pulse 83 11/27/21 07:38 Resp 15 11/27/21 07:38 BP 133/64 11/27/21 07:38 Pulse Ox 95 11/27/21 07:38 O2 Del Method 11/27/21 07:38 O2 Flow Rate 4 11/25/21 13:46 BMI result Body Mass Index 34.7 Const: Other: General? awake alert,no acute distress.? Neck? no JVD. CVS? regular rate rhythm, Respiratory lungs clear to auscultation, no respiratory distress, no wheeze, no rhonchi. Gastrointestinal abdomen soft, nontender, bowel sounds audible Extremities no edema. right knee dressing in place, with swelling and bruising around right knee Neuro nonfocal Skin no rash psych appropriate affect Objective Data Active Medications Acetaminophen (Acetaminophen 325 Mg Tablet) 650 mg PO Q6H PRN PRN Reason: Pain, Mild (Pain Scale 1-3) Last Admin: 11/27/21 07:42 Dose: 650 mg Documented By: JACE Albuterol Sulfate (Albuterol Sulfate 90 Mcg 8 Gm Inhaler) 2 puff INHALE Q4H PRN PRN Reason: wheezing Aspirin (Aspirin 325 Mg Tablet) 325 mg PO BID [facility] Last Admin: 11/27/21 09:47 Dose: 325 mg Documented By: CONY Celecoxib (Celecoxib 200 Mg Capsule) 200 mg PO BID [facility] Last Admin: 11/27/21 09:47 Dose: 200 mg Documented By: CONY Docusate Sodium (Docusate Sodium 100 Mg Capsule) 100 mg PO BID [facility] Last Admin: 11/27/21 09:49 Dose: Not Given Documented By: CONY Non-Admin Reason: Patient Refused Hydromorphone HCl (Hydromorphone Hcl 0.5 Mg/0.5 Ml Syringe) 0.5 mg IVPUSH Q4H PRN; Protocol PRN Reason: Pain, Severe (Pain Scale 7-10) Last Admin: 11/26/21 10:43 Dose: 0.5 mg Documented By: CONY Ondansetron HCl (Ondansetron Hcl 4 Mg/2 Ml Vial) 4 mg IVPUSH Q8H PRN PRN Reason: Nausea and Vomiting Oxycodone HCl (Oxycodone Hcl Immed Release 5 Mg Tablet) 10 mg PO Q4H PRN PRN Reason: Pain, Moderate (Pain Scale 4-6 Last Admin: 11/26/21 23:42 Dose: 10 mg Documented By: BRYANT Oxycodone HCl (Oxycodone Hcl Er 10 Mg Tab.Er.12h) 10 mg PO BID [facility] Last Admin: 11/27/21 09:46 Dose: 10 mg Documented By: CONY Sodium Chloride (0.9 % Sodium Chloride Flush 3 Ml Syringe) [address] [facility] Last Admin: 11/27/21 09:47 Dose: 3 ml Documented By: CONY Labs CBC & Chem 7: 11/27/21 05:54 11/27/21 05:54 Labs: Laboratory Results - last 24 hr 11/27/21 11/27/21 05:54 05:54 MCV 89.9 MCH 30.5 MCHC 34.0 RDW 11.6 Plt Count 215 MPV 10.5 Immature Gran % (Auto) 0.6 H Neut % (Auto) 77.1 H Lymph % (Auto) 12.2 L [place] % (Auto) 8.3 Eos % (Auto) 1.5 Baso % (Auto) 0.3 Lymph # (Auto) 1.4 [place] # (Auto) 1.0 Eos # (Auto) 0.2 Baso # (Auto) 0.0 Abs Immat Gran (auto) 0.07 H Absolute Neuts (auto) 9.0 H Absolute Nucleated RBC 0.000 Nucleated RBC % (auto) 0.0 Anion Gap 12 Estim Creat Clear Calc 123.6 Estimated GFR > 60 Fasting Glucose 122 H Calcium 8.8 Assessment and Plan (1) Status post total right knee replacement: Status: Acute Plan 56-year-old man admitted by Orthopedic surgery and is status post total right knee arthroplasty Total right knee arthroplasty postoperative day 2 repeat hematocrit remains stable continue current pain management and anticoagulation as per Ortho encourage incentive spirometry, continue bowel regimen Asthma.? No exacerbation Continue albuterol as needed Hypertension.? Stable blood pressure, currently BP meds on hold, recommend to resume hydrochlorothiazide and olmesartan from tomorrow, DVT prophylaxis with full-dose aspirin Full code continued inpatient hospitalization as per Orthopedic surgeon. Quality Stroke Does the patient have a stroke diagnosis?: No VTE Prior VTE?: No VTE Risk Level:: Surgical - very high VTE Device Contraindication: N/A - Device Ordered VTE Drug Contraindication: N/A - Med Ordered
[2021-11-27 11:37] VITALS: BP 145/67; PULSE 82; RESP 18; TEMP 36.6; O2SAT 96
[2021-11-27] MEDS: HYDROmorphone HCl 0.5 MG/0.5 ML SYRINGE IVPUSH (12:35)
[2021-11-27 15:18] VITALS: BP 133/67; PULSE 80; RESP 18; TEMP 37; O2SAT 96
[2021-11-27 16:00] VITALS: BP 133/67; PULSE 80; RESP 18; TEMP 37; O2SAT 96
--- NOTE | 2021-12-16 10:06 | P.OP_ITS ---
Operative Note Operative Note Date of Service: 11/25/21 Narrative: Date of Service: 11/25/21 Pre-op diagnosis: Right knee arthritis Post-op diagnosis: same Procedure: Right TKA Implants: Krystal Triathalon press fit cruciate retaining 09/16/ Surgeon: Rhys Nicolas MD Anesthesia: regional and spinal Was an Garment Looper used for this Procedure?: Yes Garment Looper: Farhana Bender Estimated blood loss (mL): 150 IV fluids (mL): 1,000 Pathology: other Condition: stable Disposition: PACU Procedure in detail: The patient was brought to the operating room and prepped and draped in standard sterile fashion. A time-out was called to identify proper site proper procedure proper surgeon and IV antibiotics were administered. 1 g of IV tranexamic acid was administered. I began by making a midline incision to the retinaculum and performed a medial parapatellar arthrotomy. The patella was translated laterally and the knee was flexed up. There was medial compartment eburnation. I performed a small medial peel and resected the infrapatellar fat pad. Sai's line was then used to drill my intramedullary femoral guide and my distal femur cut of 10 mm was made in 5 degrees of valgus while protecting the soft tissues. I then measured a # 4 femur and placed my cutting guide and made my anterior posterior and chamfer cuts protecting the soft tissues at all times. Once I was satisfied with my cuts I turned my attention to the tibia. I removed the meniscus medially and laterally and , using an external cutting guide, in line with the tibial crest and the third ray, I made my distal tibial cut in 3 deg slope of while protecting the PCL the posterior soft tissues at all times. An extension block was used to confirm appropriate amount of bony resection. I then sized a #5 tibia and once I was satisfied that there was complete tibial coverage I placed my trial and with the trial femur in place took the knee through range of motion. I was satisfied with the extension and flexion as well as the stability and balance at 0, 30 and 90 degrees. I then turned my attention to the patella where I removed 1 cm from the undersurface of the patella and then trialed a 35a patellar button. Again the knee was taken through range of motion I was satisfied with the tracking. I then returned to the femur and drilled my femoral lug holes and prepared the tibia. A femoral bone plug was placed and the knee was irrigated copiously. I then press fit the patella, tibia and femur in standard fashion. I trialed different inserts until I selected a #13 insert. The final insert was placed and a 3 minutes iodine soak with local TXA was performed. The knee was then closed with a running Quill suture, a 3 0 Vicryl and michelle on the skin. Patient was then placed in sterile dressing and brought to recovery room in stable condition there were no known complications.
== END 2021-11-27 17:09 | disposition home health service (06) | DRG 326 ==
LOC: HO.SSSA 07:22 → HO.S3 13:39
PROVIDERS: Physician Assistant; Admitting Provider Orthopaedic Surgery; PCP Nurse Practitioner Family; Responsible Provider Hospitalist; Visit Provider Orthopaedic Surgery
PROC: 0SRC0JA Replacement of Right Knee Joint with Synthetic Substitute, Uncemented, Open Approach (ICD-10-PCS; CPT 27447; principal; 2021-11-25 10:40)
DX: M17.11 Unilateral primary osteoarthritis, right knee (principal); I10 Essential (primary) hypertension; J45.909 Unspecified asthma, uncomplicated; Z20.822 Contact with and (suspected) exposure to COVID-19; Z79.899 Other long term (current) drug therapy
CPT/HCPCS: 36415; 73560; 80048; 85014; 85018; 85025; 86850; 86900; 86901; 87635; 87640; 87641; 88305; 88311; 93005; 97110; 97116; 97162; 97530; C1776; J0690; J1170; J1885; J2250; J2370; J2405; J2795; J3010

== ENCOUNTER 2021-12-11 07:57 | Outpatient (RCR) | payer OTHER, SELFPAY | END 2022-05-11 14:50 | disposition home or self-care (01) | LOC: HO.PT 07:57 | PROVIDERS: Visit Provider Physician Assistant | DX: M17.0 Bilateral primary osteoarthritis of knee (principal) ==

== ENCOUNTER → 2022-01-12 08:15 | Outpatient (BNVA) | payer OTHER, SELFPAY | PROVIDERS: Visit Provider Physician Assistant | DX: Z47.1 Aftercare following joint replacement surgery (principal); S80.01XA Contusion of right knee, initial encounter; Z96.651 Presence of right artificial knee joint | CPT/HCPCS: 20610 ==

== ENCOUNTER 2022-01-13 12:10 | Day surgery (SDC) | payer OTHER, SELFPAY ==
[2022-01-13] VITALS (8 sets, daily range): BP systolic 105–151; BP diastolic 65–94; PULSE 78–86; RESP 14–18; TEMP 36.3–36.5; O2SAT 95–100; BMI 22.9
--- NOTE | 2022-01-13 13:01 | HO.ANESPROP2 ---
HPI - Anesthesia Eval Consult details Narrative: 56 M for I and D of the knee , right . Asthma , HTN . [facility] Active Problems Active Problems: All Active Problems (Updated 01/12/22 @ 10:43 by Cuauhtemoc Robles) Hematoma of right knee region (Acute) Status post total right knee replacement (Acute) Bilateral primary osteoarthritis of knee (Acute) Past Medical History Medical History Asthma High blood pressure Osteoarthritis of right knee Family History Family history of problems with anesthesia: No Surgical History Surgical History History of umbilical hernia repair Hx of colonoscopy History of Problems with Anesthesia: No Social History Social History Are you a primary critical care registered nurse to a significant other at home: No Do you presently have visiting nurse or other home services: No Patient Tobacco Use Status: Never used Tobacco Second Hand Smoke Exposure: No Use of substances other than those prescribed or required for medical reasons: No Are you DNR?: No Advance Directives: No Advance Directives Information Provided: Yes Recently lost weight without trying: No service: No Current occupational status: employed 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 Meds Allergies Allergy/AdvReac Type Severity Reaction Status Date / Time No Known Allergies Allergy Verified 01/12/22 08:23 [No Known Allergies*] Home Medications Medication Instructions Recorded Confirmed Last Taken Type albuterol sulfate 90 mcg/actuation 2 puff inhalation Q4H PRN wheezing 08/15/21 11/13/21 Unknown History aerosol inhaler (Ventolin HFA) hydrochlorothiazide 25 mg tablet 25 mg PO QAM 08/15/21 11/13/21 Unknown History nabumetone 750 mg tablet 750 mg PO BID PRN pain 08/15/21 11/13/21 Unknown History olmesartan 5 mg tablet 1 tab PO QAM blood pressure 11/13/21 11/13/21 Unknown History aspirin 325 mg tablet,delayed 325 mg PO BID 12/16/21 Unknown History release Exam Exam Date and Time: January 13, 2022 1301 Air[address] Mallampati Class: III TM Dist: >3cm Neck ROM: Full Partial: Upper Loose/Missing/Broken Teeth: Yes (chipped teeth ) Heart: S1,S2 Lungs: b/l breath sounds Assessment and Plan Assessment Anesthesia Assessment: Anesthesia Plan Discussed Final Anesthetic Review Family History of Problems with Anesthesia: No History of Problems with Anesthesia: No NPO: Yes ASA Class: III Final Preanesthetic Review: Meds/Allgs Chart Reviewed, Consent Obtained/Reviewed and Anes Risks/Benef Reviewed Patient Risk: Intermediate Procedure Risk: Intermediate Anesthetic Plan Anesthetic Plan: MAC: (Gen backup) Disposition: Standard PACU
[2022-01-13] MEDS: Lactated Ringers 1,000 ML 50 ML IVCONT (13:56)
--- NOTE | 2022-01-13 16:30 | PM.OP ---
Brief Operative Note Date of Service: 01/13/22 Pre-op diagnosis: right knee abcess Post-op diagnosis: other (right knee capsular dehiscence) Procedure: irrigation and debridement with caspular closure right knee Surgeon: Rhys Nicolas MD Anesthesia: GLMA and local Was an Bowl Attendant used for this Procedure?: No Estimated blood loss (mL): 50 IV fluids (mL): 500 Pathology: none sent Condition: stable Disposition: PACU
[2022-01-13] MEDS: oxyCODONE HCl Immed Release 5 MG TABLET PO (16:37)
[2022-01-13] MEDS: fentaNYL citrate/PF 100 MCG/2 ML VIAL 25 MCG IVPUSH ×2 (16:39→16:44)
--- NOTE | 2022-01-14 10:50 | W.PM.OPN ---
Operative Note Operative Note Date of Service: 01/14/22 Narrative: Date of Service: 01/13/22 Pre-op diagnosis: right knee abcess Post-op diagnosis: other (right knee capsular dehiscence) Procedure: irrigation and debridement with caspular closure right knee Surgeon: Rhys Nicolas MD Anesthesia: GLMA and local Was an Special Education Supervisor used for this Procedure?: No Estimated blood loss (mL): 50 IV fluids (mL): 500 Pathology: none sent Condition: stable Disposition: PACU Procedure in detail: Patient was brought to the operating room and placed supine on the surgical table. He was prepped and draped in standard sterile fashion and a time out was called to identify proper site, proper procedure and IV antibiotics per weight were administered. I began by making a 1.5-2 cm incision over the most distal aspect of the prior incision. A full-thickness skin flap was developed. Immediately there was expression of normal appearing joint fluid. I used a [place] retractor to elevate the medial flap and through direct visualization and digital exploration I could tell there was a rent in the capsule with the exposed hardware. There was no evidence of infection. I had previously aspirated the joint and sent it for laboratory evaluation and therefore I irrigated copiously. I then used a 2.0 Prolene to close the dime size rent in the capsule. This tissue was suboptimal but I did have a reasonable closure. I then closed the skin with 2-0 nylon and vertical mattress configuration. Once this was done sterile dressings were applied and local anesthetic both before incision after was administered. Patient was then placed and sterile dressing extubated brought to recovery room in stable condition. There were no known complications.
== END 2022-01-13 17:05 | disposition home or self-care (01) ==
PROVIDERS: PCP Nurse Practitioner Family; Visit Provider Orthopaedic Surgery
PROC: (CPT 27310; principal; 2022-01-13 16:30)
DX: T81.31XA Disruption of external operation (surgical) wound, not elsewhere classified, initial encounter (principal); M17.11 Unilateral primary osteoarthritis, right knee; Z96.651 Presence of right artificial knee joint; Y83.8 Other surgical procedures as the cause of abnormal reaction of the patient, or of later complication, without mention of misadventure at the time of the procedure; Y92.9 Unspecified place or not applicable; I10 Essential (primary) hypertension; J45.909 Unspecified asthma, uncomplicated; Z79.899 Other long term (current) drug therapy
CPT/HCPCS: 27310; J0690; J2250; J2370; J2795; J3010

== ENCOUNTER 2022-02-27 08:13 | Outpatient (REF) | payer OTHER, SELFPAY ==
--- NOTE | ~2022-02-27 | XR_ITS ---
EXAMINATION: XR KNEE, RIGHT XR KNEE AP STANDING CLINICAL INFORMATION: Right knee pain. COMPARISON: Radiographs dated 11/25/2021. TECHNIQUE: Lateral and axial views of the right knee are obtained. AP bilateral standing view of the knees was obtained. FINDINGS: Prosthetic components of the right total knee arthroplasty are appropriately aligned without periprosthetic fracture or lucency. No component migration. No joint effusion. There is moderately severe narrowing of the medial joint space compartment of the left knee, peripheral osteophyte formation. The lateral joint space compartment is well-maintained. There is a secondary mild varus configuration. No fracture or dislocation is seen. XR/XR knee RT 2V IMPRESSION: 1. Appropriate alignment of the right total knee arthroplasty without evidence of complications. 2. There is moderately severe osteoarthritic change of the medial joint space compartment of the left knee.
--- NOTE | ~2022-02-27 | XR_ITS ---
EXAMINATION: XR KNEE, RIGHT XR KNEE AP STANDING CLINICAL INFORMATION: Right knee pain. COMPARISON: Radiographs dated 11/25/2021. TECHNIQUE: Lateral and axial views of the right knee are obtained. AP bilateral standing view of the knees was obtained. FINDINGS: Prosthetic components of the right total knee arthroplasty are appropriately aligned without periprosthetic fracture or lucency. No component migration. No joint effusion. There is moderately severe narrowing of the medial joint space compartment of the left knee, peripheral osteophyte formation. The lateral joint space compartment is well-maintained. There is a secondary mild varus configuration. No fracture or dislocation is seen. XR/XR knee standing BI IMPRESSION: 1. Appropriate alignment of the right total knee arthroplasty without evidence of complications. 2. There is moderately severe osteoarthritic change of the medial joint space compartment of the left knee.
== END 2022-02-27 08:14 | disposition home or self-care (01) ==
LOC: HO.HOSX 08:13
PROVIDERS: Visit Provider Physician Assistant
DX: M25.562 Pain in left knee (principal); Z96.651 Presence of right artificial knee joint
CPT/HCPCS: 73560; 73565; 99212

== ENCOUNTER → 2022-04-10 10:56 | Outpatient (BNVA) | payer OTHER, SELFPAY | PROVIDERS: PCP Nurse Practitioner Family; Visit Provider Orthopaedic Surgery | DX: M17.12 Unilateral primary osteoarthritis, left knee (principal); Z96.651 Presence of right artificial knee joint | CPT/HCPCS: 99212 ==

== ENCOUNTER 2022-05-18 13:00 | Outpatient (RCR) | payer MEDICAID, OTHER, SELFPAY ==
--- NOTE | 2022-05-18 14:26 | MHC.PT.DC ---
[facility] [place] Office [place] Office [place] Office [address] Gautam Hernandez [address] [facility] [phone] F: [phone] F: [phone] F: [phone] F: [phone] Physical Therapy Discharge Report Diagnosis: S/P RIGHT TKA 11/25/21 Date of Surgery: 11/25/21 Date of Evaluation: 12/25/21 Date of Discharge: 05/18/22 Treatments to Date: 29 Cancellations to Date: 0 No Shows to Date: 0 Discharge Status: Achieved Goals Improved Function Independent with HEP Discharge Summary: Has met goals of PT on this date and is DCed on this date. Knee AROM 0-121 degrees MMT reveals hip and knee motions are 5/5 throughout Electronically signed by: Maya Bryson PT, DPT Please sign and return to therapist. Thank you for your referral.
== END 2022-05-18 14:27 | disposition home or self-care (01) ==
LOC: HO.PT 13:00
PROVIDERS: Visit Provider Physician Assistant
DX: Z96.651 Presence of right artificial knee joint (principal)
CPT/HCPCS: 97110; 97116; 97140; 97161; 97530

== ENCOUNTER → 2022-07-06 12:03 | Outpatient (BNVA) | payer OTHER, SELFPAY | PROVIDERS: PCP Nurse Practitioner Family; Visit Provider Orthopaedic Surgery | DX: M17.12 Unilateral primary osteoarthritis, left knee (principal); Z96.651 Presence of right artificial knee joint | CPT/HCPCS: 99212 ==

== ENCOUNTER 2022-09-15 11:00 | Outpatient (RCR) | payer MEDICAID, OTHER, SELFPAY ==
--- NOTE | 2022-07-28 16:51 | MHC.PT.EP ---
[facility] [place] Office [place] Office [employer] Office [address] Gautam Hernandez [address] [phone] F: [phone] F: [phone] F: [phone] F: [phone] Physical Therapy Plan of Care Date of Evaluation: Date of Surgery: 09/30/22 Diagnosis: OA L KNEE, S/P R TKR Assessment: Pt IS 56 YO M REFERRED TO PT FROM [facility]THO (DR CARABALLO) S/P R TKR 11/25/21, HAD R KNEE I&D WITH CAPSULAR CLOSURE ON 01/13/22. NOW C/O MORE L KNEE PAIN, SAW ORTHO, TO BE SCHEDULED FOR L TKR ON September. REPORTS WENT HOME AND PT AT HOME AND THEN OUTPt PT. REPORT R KNEE DOING WELL AT THIS TIME. USED WW>CANE>NO AD PRESENTS AT THIS TIME WITH SOME DECREASE IN L LE ROM AND STRENGTH. WOULD BENEFIT FROM PT 1X/WK TO REVIEW EX PROGRAM FOR TKR AND REV PO PT, GT, TRANSFERS ETC Frequency and Duration: The patient will be seen 1X/WK X 4 WKS Short Term Goals: 1. I HEP FOR PO TKR 2. INCREASED AWARENESS PO TKR PT INTERVENTION [facility] Goals: 1. Pt TO DEMONSTRATE PROPER TRANSF TECH FOR PO TKR 2. Pt TO DEMONSTRATE GT AND STAIRS FOR PO TKR Treatment Plan: Modalities to reduce pain, spasms and effusion. Manual therapy to restore motion and function. Therapeutic exercise to improve strength and flexibility. Neuromuscular re-education for posture and balance. Therapeutic activities to return to functional activities of daily living. Electronically signed by: SCARLET CHARLES PT Please sign and return to therapist. Thank you for your referral.
--- NOTE | 2022-09-21 16:01 | MHC.PT.DC ---
[facility] [place] Office [place] Office [place] Office [address] [facility] [facility] [address] [place] [address] Dr Gautam Hernandez [address] [phone] F: [phone] F: [phone] F: [phone] F: [phone] Physical Therapy Discharge Report Diagnosis: OA L KNEE, S/P R TKR Date of Surgery: 10/06/22 Date of Evaluation: 07/28/22 Date of Discharge: 09/21/22 Treatments to Date: 5 Cancellations to Date: No Shows to Date: Discharge Status: Achieved Goals Independent with HEP Discharge Summary: PER LAST VISIT ASSESSMENT BY CLARENCE GABRIEL SENIOR INTEGRATION DEVELOPER 09/[address] and LT goals for post op TKA ed and ex. At this time pt feels ready for D/C. Issued green loop and ex sheet. Pt has a walker and cane for post op. TO HAVE L TKR ON 10/07/22 Electronically signed by: SCARLET CHARLES PT Please sign and return to therapist. Thank you for your referral.
== END 2022-09-21 16:01 | disposition home or self-care (01) ==
LOC: HO.PT 11:00
PROVIDERS: PCP Nurse Practitioner Family; Visit Provider Orthopaedic Surgery
DX: M17.12 Unilateral primary osteoarthritis, left knee (principal); Z96.651 Presence of right artificial knee joint
CPT/HCPCS: 97110; 97161; 97530

== ENCOUNTER → 2022-10-01 10:03 | Outpatient (BNVA) | payer MEDICAID, SELFPAY | PROVIDERS: PCP Internal Medicine; Visit Provider Physician Assistant ==

== ENCOUNTER 2022-10-07 10:00 | Inpatient (IN) | payer MEDICAID, SELFPAY ==
[2022-09-23 11:37] VITALS: BP 143/75; PULSE 65; RESP 20; O2SAT 97; BMI 36.8
--- NOTE | 2022-09-23 11:53 | HO.ANESPROP2 ---
Documented by User: Cindy Loera NP 09/30/22 08:50 HPI - Anesthesia Eval Consult details Narrative: 56yo M for Left TKA 10/07/22 PCP cleared s/p R TKA 11/2021 with spinal/block PMFSH Active Problems Active Problems: All Active Problems (Updated 09/22/22 @ 11:13 by Zofia Bravo RN) Bilateral primary osteoarthritis of knee (Acute) Status post total right knee replacement (Acute) Hematoma of right knee region (Acute) Osteoarthritis of left knee (Acute) Past Medical History Medical History Asthma High blood pressure Osteoarthritis of right knee Prediabetes Varicose veins of legs Family History Family history of problems with anesthesia: No Surgical History Surgical History History of incision and drainage History of total right knee replacement History of umbilical hernia repair Hx of colonoscopy History of Problems with Anesthesia: No Social History Social History Household Members: Family Housing: Apartment Are you a primary laboratory animal care veterinarian to a significant other at home: No Do you presently have visiting nurse or other home services: No Patient Tobacco Use Status: Never used Tobacco Second Hand Smoke Exposure: No Use of substances other than those prescribed or required for medical reasons: No Currently Displaying Signs/Symptoms of Drug Intoxication Withdrawal: No Have you been hit, kicked, punched, or otherwise hurt by someone within the past year? If so, by whom?: No Do you feel safe in your current relationship?: Yes Is there a partner from a previous relationship who is making you feel unsafe now?: No Are you made to feel afraid or neglected: No Are you DNR?: No Advance Directives: No Advance Directives Information Provided: Yes Advance Directives on File: No Do you have thoughts of harming others: None Do you have a plan to hurt others: No Plan Recently lost weight without trying: No Eating poorly because of decreased appetite: No Nutrition Risks: No Nutritional Risk Poor oral hygiene: Yes (upper partial) service: No Current occupational status: employed 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 No CP/SOB. Meds Allergies Allergy/AdvReac Type Severity Reaction Status Date / Time No Known Allergies Allergy Verified 10/01/22 10:09 [No Known Allergies*] Home Medications Medication Instructions Recorded Confirmed Last Taken Type albuterol sulfate 90 mcg/actuation 2 puff inhalation Q4H PRN wheezing 08/15/21 10/07/22 10/05/22 History aerosol inhaler (Ventolin HFA) hydrochlorothiazide 25 mg tablet 25 mg PO QAM 08/15/21 10/07/22 10/05/22 History olmesartan 5 mg tablet 1 tab PO QAM blood pressure 11/13/21 10/07/22 10/05/22 History fluticasone propionate 50 1 spray intranasal DAILY 09/22/22 10/07/22 10/05/22 History mcg/actuation nasal spray,suspension Exam Exam Date and Time: September 23, 2022 1153 Height,Weight and Vital Signs: Height 6 ft 2 in Weight 130.181 kg Last Vital Signs Pulse 65 09/23/22 11:37 Resp 20 09/23/22 11:37 BP 143/75 H 09/23/22 11:37 Pulse Ox 97 09/23/22 11:37 O2 Del Method Room Air 09/23/22 11:37 Pertinent Lab Results Pertinent Lab Results: CBC and CMP 08/2022 from outside facility ALL WNL Narrative Narrative: EKG 08/2022 SR @ 57 Airway Mallampati Class: I TM Dist: >3cm Neck ROM: Full Partial: Upper Loose/Missing/Broken Teeth: Yes (Lower left missing molar) Heart: RRR Lungs: CTAB Assessment and Plan Assessment Anesthesia Assessment: Anesthesia Plan Discussed and PAT Visit Final Anesthetic Review Family History of Problems with Anesthesia: No History of Problems with Anesthesia: No Documented by User: Roxy Leos MD 10/08/22 07:35 PMFSH Past Medical History Medical History Asthma High blood pressure Osteoarthritis of right knee Prediabetes Varicose veins of legs Surgical History Surgical History History of incision and drainage History of total right knee replacement History of umbilical hernia repair Hx of colonoscopy Social History Social History Household Members: Family Housing: Apartment Are you a primary laboratory animal care veterinarian to a significant other at home: No Do you presently have visiting nurse or other home services: No Patient Tobacco Use Status: Never used Tobacco Second Hand Smoke Exposure: No Use of substances other than those prescribed or required for medical reasons: No Currently Displaying Signs/Symptoms of Drug Intoxication Withdrawal: No Have you been hit, kicked, punched, or otherwise hurt by someone within the past year? If so, by whom?: No Do you feel safe in your current relationship?: Yes Is there a partner from a previous relationship who is making you feel unsafe now?: No Are you made to feel afraid or neglected: No Are you DNR?: No Advance Directives: No Advance Directives Information Provided: Yes Advance Directives on File: No Do you have thoughts of harming others: None Do you have a plan to hurt others: No Plan Recently lost weight without trying: No Eating poorly because of decreased appetite: No Nutrition Risks: No Nutritional Risk Poor oral hygiene: Yes (upper partial) service: No Current occupational status: employed 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 Meds Allergies Allergy/AdvReac Type Severity Reaction Status Date / Time No Known Allergies Allergy Verified 10/01/22 10:09 [No Known Allergies*] Home Medications Medication Instructions Recorded Confirmed Last Taken Type albuterol sulfate 90 mcg/actuation 2 puff inhalation Q4H PRN wheezing 08/15/21 10/07/22 10/05/22 History aerosol inhaler (Ventolin HFA) hydrochlorothiazide 25 mg tablet 25 mg PO QAM 08/15/21 10/07/22 10/05/22 History olmesartan 5 mg tablet 1 tab PO QAM blood pressure 11/13/21 10/07/22 10/05/22 History fluticasone propionate 50 1 spray intranasal DAILY 09/22/22 10/07/22 10/05/22 History mcg/actuation nasal spray,suspension Exam Airway Mallampati Class: II Assessment and Plan Assessment Anesthesia Assessment: Chart Reviewed Final Anesthetic Review ASA Class: III Final Preanesthetic Review: No Changes in Pt Med Stat, Meds/Allgs Chart Reviewed, Consent Obtained/Reviewed and Anes Risks/Benef Reviewed Patient Risk: Intermediate Procedure Risk: Intermediate Anesthetic Plan Anesthetic Plan: Spinal and Regional Block (case done 10/07/22 , pre op reviewed same day pre surgery , edited and finalised 10/08 due to ipad expanse issue .) Disposition: Standard PACU
[2022-09-23 14:04] LABS: MRSA Nasal PCR NEGATIVE (Negative); SA Nasal PCR NEGATIVE (Negative)
[2022-10-07] VITALS (9 sets, daily range): BP systolic 93–154; BP diastolic 54–76; PULSE 64–84; RESP 16–18; TEMP 35.8–36.7; O2SAT 95–99
--- NOTE | 2022-10-07 10:18 | PHA.MEDREC ---
Pharmacy Consult ? Medication Reconciliation Pharmacy has completed the medication reconciliation. Reviewed med rec done by nursing
[2022-10-07 10:27] LABS: Hematocrit 42.1 % (42.0-52.0); Hemoglobin 14.1 g/dl (14.0-18.0)
[2022-10-07] MEDS: Lactated Ringers 1,000 ML 100 ML IVCONT ×2 (10:41→15:28)
--- NOTE | 2022-10-07 11:55 | MHC.SHP ---
Pre-Procedural Eval Section A Date of Service: 10/07/22 The patient is an INPATIENT: No Changes since office visit: No Cold of Flu in the past 2 weeks, No New Medical Problems, No Changes in Medication and No Patient answered all questions The History & Physical has been completed within 30 days and I have reviewed it.: Yes Section B Chief Complaint: LTKA Allergies: Allergies Allergy/AdvReac Type Severity Reaction Status Date / Time No Known Allergies Allergy Verified 10/01/22 10:09 [No Known Allergies*] Plan I have reviewed the history and physical and performed a pertinent physical examination on my patient. No changes have occurred unless specified. Time Spent With Patient Time: Total time managing care of this patient today ____ minutes.
--- NOTE | 2022-10-07 13:43 | P.BOP_ITS ---
Brief Operative Note Date of Service: 10/07/22 Pre-op diagnosis: Left knee OA Post-op diagnosis: same Procedure: Left TKA Implants: [place] Triathlon press fit cruciate retaining 09/17/11 Surgeon: Rhys Nicolas MD Anesthesia: regional Was an Pump Machine Operator used for this Procedure?: Yes Pump Machine Operator: Lili Gaines Estimated blood loss (mL): 200 IV fluids (mL): 1,000 Pathology: other Condition: stable Disposition: PACU
[2022-10-07] MEDS: Acetaminophen 325 MG TABLET 650 MG PO (15:25)
[2022-10-07] MEDS: oxyCODONE HCl Immed Release 5 MG TABLET PO (15:27)
[2022-10-07] MEDS: HYDROmorphone HCl 0.5 MG/0.5 ML SYRINGE 0.25 MG IVPUSH (16:42)
--- NOTE | 2022-10-07 16:42 | HO.PM.IMCN ---
History of Present Illness Data of Consult Service Date: 10/07/22 Primary Care Provider: Mumtaz Menendez MD HPI 56 year old male with HTN, asthma and other history as listed below and underwent elective L TKR today, he's had a prior R TKR. He is doing ok after surgery, pain is reasonably controlled. No other acute complaint at this time. Review of Systems Review of Systems: Gen: no fever Resp: no sob, no cough CV: no chest, no VILLANUEVA, no leg edema GI: No n/v, no abd pain Neuro: No confusion Yes all other systems are reviewed and are negative [facility] Medical History Asthma High blood pressure Osteoarthritis of right knee Prediabetes Varicose veins of legs Surgical History History of incision and drainage History of total right knee replacement History of umbilical hernia repair Hx of colonoscopy Social History Household Members: Family Housing: Apartment Are you a primary healthcare administration internship to a significant other at home: No Do you presently have visiting nurse or other home services: No Patient Tobacco Use Status: Never used Tobacco Second Hand Smoke Exposure: No service: No Current occupational status: employed 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 Meds Allergies Allergy/AdvReac Type Severity Reaction Status Date / Time No Known Allergies Allergy Verified 11/20/22 10:14 [No Known Allergies*] Active Medications: Current Medications Acetaminophen (Acetaminophen 325 Mg Tablet) 650 mg PO Q6H PRN PRN Reason: Pain, Mild (Pain Scale 1-3) Last Admin: 10/07/22 15:25 Dose: 650 mg Albuterol Sulfate (Albuterol Sulfate 90 Mcg 8 Gm Inhaler) 2 puff INHALE Q4H PRN PRN Reason: wheezing Aspirin (Aspirin 325 Mg Tablet) 325 mg PO BID YURIY Last Admin: 10/07/22 15:22 Dose: Not Given Celecoxib (Celecoxib 200 Mg Capsule) 200 mg PO BID YURIY Fentanyl (Fentanyl Citrate/Pf 100 Mcg/2 Ml Vial) 50 mcg IVPUSH Q5M PRN; Protocol PRN Reason: Pain, Moderate (Pain Scale 4-6 Fluticasone Propionate (Fluticasone Propionate Nasal 16 Gm [place]) 1 spray NOSTRIL-B DAILY [facility] Hydrochlorothiazide (Hydrochlorothiazide 25 Mg Tablet) 25 mg PO DAILY [facility]; Protocol Last Admin: 10/07/22 15:15 Dose: Not Given Hydromorphone HCl (Hydromorphone Hcl 0.5 Mg/0.5 Ml Syringe) 0.5 mg IVPUSH Q5M PRN; Protocol PRN Reason: Pain, Severe (Pain Scale 7-10) Hydromorphone HCl (Hydromorphone Hcl 0.5 Mg/0.5 Ml Syringe) 0.25 mg IVPUSH Q4H PRN; Protocol PRN Reason: Pain, Severe (Pain Scale 7-10) Last Admin: 10/07/22 16:42 Dose: 0.25 mg Promethazine HCl 6.25 mg/ (Sodium Chloride) 50.25 mls @ 201 mls/hr IV ONCE PRN PRN Reason: Nausea and Vomiting Lactated Ringer's (Lr) 1,000 mls @ 100 mls/hr IVCONT .Q10H [facility] Last Admin: 10/07/22 15:28 Dose: 100 mls/hr Cefazolin Sodium/Dextrose (Ancef) 2 gm in 50 mls @ 100 mls/hr IV POSTOP ONE Stop: 10/07/22 18:29 Non-Formulary Medication (Olmesartan) 1 tab PO QAM [facility] Ondansetron HCl (Ondansetron Hcl 4 Mg/2 Ml Vial) 4 mg IVPUSH ONCE PRN PRN Reason: Nausea and Vomiting Oxycodone HCl (Oxycodone Hcl Immed Release 5 Mg Tablet) 5 mg PO ONCE PRN PRN Reason: Pain, Severe (Pain Scale 7-10) Oxycodone HCl (Oxycodone Hcl Er 10 Mg Tab.Er.12h) 10 mg PO BID [facility] Oxycodone HCl (Oxycodone Hcl Immed Release 5 Mg Tablet) 5 mg PO Q4H PRN PRN Reason: Pain, Moderate (Pain Scale 4-6 Last Admin: 10/07/22 15:27 Dose: 5 mg Sodium Chloride (0.9 % Sodium Chloride Flush 3 Ml Syringe) 3 ml IVFLUSH QSHIFT [facility] Last Admin: 10/07/22 15:28 Dose: Not Given Home Medications Medication Instructions Recorded Confirmed Last Taken Type albuterol sulfate 90 mcg/actuation 2 puff inhalation Q4H PRN wheezing 08/15/21 10/07/22 10/05/22 History aerosol inhaler (Ventolin HFA) hydrochlorothiazide 25 mg tablet 25 mg PO QAM 08/15/21 10/07/22 10/05/22 History olmesartan 5 mg tablet 1 tab PO QAM blood pressure 11/13/21 10/07/22 10/05/22 History fluticasone propionate 50 1 spray intranasal DAILY 09/22/22 10/07/22 10/05/22 History mcg/actuation nasal spray,suspension Physical Exam Vital Signs and Narrative: Vital Signs: Last Vital Signs Temp 98 F 10/07/22 15:38 Pulse 65 10/07/22 15:38 Resp 18 10/07/22 15:38 BP 130/66 10/07/22 15:38 Pulse Ox 99 10/07/22 15:38 O2 Del Method Room Air 10/07/22 15:38 BMI result Body Mass Index 36.8 Const: Other: General: AO X 3, no acute distress Resp: CTA bilateral CVS: S1,S2,RRR GI: +BS, NT, no distention Skin: No rash, l knee dressing in place Neuro: motor grossly intact Psych: appropriate affect Results Labs 10/07/22 10:21 Assessment and Plan (1) Status post total left knee replacement: Status: Acute Plan 56 year old male with HTN, asthma and other history as listed below and underwent elective L TKR today, he's had a prior R TKR. He is doing ok after surgery, pain is reasonably controlled. No other acute complaint at this time. s/p L TKR management per ortho HTN restart home meds moderate persistent asthma--no exacerbation, continue inhalers sing off, and follow on PRN basis Time Spent With Patient Time: Total time managing care of this patient today ____ minutes.
[2022-10-07] MEDS: ceFAZolin Sodium/Dextrose,Iso 2 GM/50 ML PIGGYBACK IV (17:13)
[2022-10-07] MEDS: HYDROmorphone HCl 0.5 MG/0.5 ML SYRINGE IVPUSH ×2 (18:12→21:56)
[2022-10-07] MEDS: oxyCODONE HCl Immed Release 5 MG TABLET 10 MG PO (19:28)
[2022-10-07] MEDS: oxyCODONE HCl ER 10 MG TAB.ER.12H PO (19:28)
[2022-10-07] MEDS: Celecoxib 200 MG CAPSULE PO (19:28)
[2022-10-08] VITALS (8 sets, daily range): BP systolic 147–163; BP diastolic 70–86; PULSE 74–84; RESP 16–20; TEMP 36.6–37.3; O2SAT 93–96
[2022-10-08] MEDS: Acetaminophen 325 MG TABLET 650 MG PO (00:21)
[2022-10-08] MEDS: oxyCODONE HCl Immed Release 5 MG TABLET 10 MG PO ×5 (00:22→21:25)
[2022-10-08] MEDS: HYDROmorphone HCl 0.5 MG/0.5 ML SYRINGE IVPUSH ×5 (01:18→19:01)
[2022-10-08] MEDS: Lactated Ringers 1,000 ML 100 ML IVCONT ×3 (01:18→22:28)
[2022-10-08 06:53] LABS: MANUAL DIFF FLAG NO
[2022-10-08 07:01] LABS: Basophils Percent Auto 0.2 % (0-2); Eosinophils Absolute Auto 0.1 X10*3/uL (0.0-0.4); Eosinophils Percent Auto 0.4 % (0-4); Hematocrit 38.1 % (42.0-52.0); Imm Gran Abs Auto 0.06 X10*3/uL (0.00-0.03); Imm Gran Pct Auto 0.5 % (0.0-0.4); Lymphocytes Absolute Auto 1.3 X10*3/uL (1.2-4.9); Lymphocytes Percent Auto 10.4 % (20-40); Mean Corpuscular HGB Conc 34.1 g/dl (31.0-36.0); Mean Corpuscular Hemoglobin 30.3 pg (27.0-33.0); Mean Corpuscular Volume 88.8 fL (80.0-98.0); Mean Platelet Volume 10.8 fL (9.4-12.4); Monocytes Absolute Auto 0.9 X10*3/uL (0.1-1.2); Monocytes Percent Auto 7.7 % (2-11); Neutrophils Absolute Auto 9.8 x10*3/uL (2.0-8.3); Neutrophils Percent Auto 80.8 % (45-73); Platelet Count 256 X10*3/uL (160-400); Red Blood Count 4.29 X10*6/uL (4.60-5.80); Red Cell Distribution Width 11.8 % (11.0-16.0); White Blood Count 12.2 X10*3/uL (4.8-10.8)
[2022-10-08 07:15] LABS: Anion Gap 15 (12-20); Blood Urea Nitrogen 12 mg/dL (9-16); Calcium 8.8 mg/dL (8.4-10.2); Carbon Dioxide 24 mmol/L (22-29); Chloride 99 mmol/L (96-108); Creatinine Clr Calc Pharmacy 130.2; Estimated Glomerular Filt Rate > 60; Glucose Fasting 161 mg/dL (60-99); Potassium 4.2 mmol/L (3.3-5.1); Sodium 134 mmol/L (135-145)
[2022-10-08] MEDS: Celecoxib 200 MG CAPSULE PO ×2 (07:21→21:10)
[2022-10-08] MEDS: oxyCODONE HCl ER 10 MG TAB.ER.12H PO ×2 (07:21→21:10)
[2022-10-08] MEDS: Aspirin 325 MG TABLET PO ×2 (07:22→21:11)
[2022-10-08] MEDS: hydroCHLOROthiazide 25 MG TABLET PO (07:27)
--- NOTE | 2022-10-08 08:53 | PM.PNORT ---
Subjective Subjective Date of Service: 10/08/22 Interval history: POD1 s/p LTKA. Patient resting in bed. No overnight events. Patient reports pain. No additional complaints. Physical Exam Vital Signs: Vital Signs: Last Vital Signs Temp 99 F 10/08/22 07:56 Pulse 80 10/08/22 07:56 Resp 18 10/08/22 07:56 BP 153/75 H 10/08/22 07:56 Pulse Ox 94 10/08/22 07:56 O2 Del Method Room Air 10/08/22 07:56 BMI result Body Mass Index 36.8 Const: General: cooperative, healthy appearing and no acute distress Resp: Effort & Inspection: normal respiratory effort and able to speak in complete sentences Cardio: Rate: regular rate Peripheral pulses: Peripheral pulses 2+ throughout GI: Palpation (GI): Soft to palpation Skin: Lesions: no lesions Rashes: no rashes Extrem: Other: Left knee Aquacel is c/d/i. Able to dorsi/plantar flex. NVI. Procedures Date of Service Date of Service: 10/08/22 Progress Note: A&P Assessment and plan (1) Status post total left knee replacement: Status: Acute Assessment and Plan: Continue pain mgmnt Begin ASA for dvt ppx begin PT for LTKA Dispo planning-Pending PT eval, pain mgmnt Time Spent With Patient Time: Total time managing care of this patient today ____ minutes. Quality Stroke Does the patient have a stroke diagnosis?: No VTE Prior VTE?: No VTE Risk Level:: Medical - moderate - high VTE Device Contraindication: N/A - Device Ordered VTE Drug Contraindication: N/A - Med Ordered
[2022-10-08] MEDS: Acetaminophen 1,000 MG/100 ML PIGGYBACK 400 MG IV ×3 (09:32→21:11)
--- NOTE | 2022-10-08 14:19 | HO.POSTANES ---
Post Anesthesia Evaluation Post Anesthesia Evaluation Vital Signs: Vital Signs Temp Pulse Resp BP Pulse Ox O2 Del Method O2 Flow Rate 10/08/22 11:39 99.1 F 76 18 147/78 H 96 Room Air 96 10/08/22 07:56 99 F 80 18 153/75 H 94 Room Air 10/08/22 03:29 98.6 F 84 18 148/79 H 96 Room Air Anesthesia: Spinal and Nerve Block Mental Status: Awake Pain Control: Satisfactory Nausea/Vomiting: None Hydration: Adequate Anesthesia-Related Issues: No Anes. Related Issues
--- NOTE | 2022-10-08 15:24 | MHC.CM.PN ---
PT REPORTS HE LIVES WITH HIS AND IS INDEPENDENT AT BASELINE PT HAD NO SERVICES MANAGER COSMETIC AND SAYS HE HAS A WALKER AND A CANE HE IS COVID VAX AND BOOSTED HE HAS A HCP ON FILE PCP: GERARDO WRIGHT DCP: HOME WITH [facility]NA FOR PT REFERRAL TO [facility] TO TRANSPORT
[2022-10-09] MEDS: oxyCODONE HCl Immed Release 5 MG TABLET 10 MG PO ×2 (02:23→06:16)
[2022-10-09] MEDS: Acetaminophen 1,000 MG/100 ML PIGGYBACK 400 MG IV (02:24)
[2022-10-09 03:10] VITALS: BP 131/71; PULSE 79; RESP 16; TEMP 36.6; O2SAT 94
[2022-10-09 03:13] VITALS: BP 133/83; PULSE 71; RESP 16; TEMP 36.1; O2SAT 98
[2022-10-09 04:36] LABS: MANUAL DIFF FLAG NO
[2022-10-09 04:40] LABS: Basophils Percent Auto 0.3 % (0-2); Eosinophils Absolute Auto 0.3 X10*3/uL (0.0-0.4); Eosinophils Percent Auto 2.7 % (0-4); Hematocrit 34.8 % (42.0-52.0); Imm Gran Abs Auto 0.05 X10*3/uL (0.00-0.03); Imm Gran Pct Auto 0.5 % (0.0-0.4); Lymphocytes Absolute Auto 1.6 X10*3/uL (1.2-4.9); Lymphocytes Percent Auto 14.8 % (20-40); Mean Corpuscular HGB Conc 34.5 g/dl (31.0-36.0); Mean Corpuscular Hemoglobin 30.1 pg (27.0-33.0); Mean Corpuscular Volume 87.2 fL (80.0-98.0); Mean Platelet Volume 10.4 fL (9.4-12.4); Monocytes Absolute Auto 1.1 X10*3/uL (0.1-1.2); Monocytes Percent Auto 9.7 % (2-11); Neutrophils Absolute Auto 7.8 x10*3/uL (2.0-8.3); Platelet Count 211 X10*3/uL (160-400); Red Blood Count 3.99 X10*6/uL (4.60-5.80); Red Cell Distribution Width 11.6 % (11.0-16.0); White Blood Count 10.8 X10*3/uL (4.8-10.8)
[2022-10-09 05:12] LABS: Anion Gap 11 (12-20); Blood Urea Nitrogen 13 mg/dL (9-16); Calcium 8.6 mg/dL (8.4-10.2); Carbon Dioxide 29 mmol/L (22-29); Chloride 98 mmol/L (96-108); Creatinine Clr Calc Pharmacy 107.1; Estimated Glomerular Filt Rate > 60; Glucose Fasting 140 mg/dL (60-99); Potassium 3.5 mmol/L (3.3-5.1); Sodium 134 mmol/L (135-145)
[2022-10-09] MEDS: Lactated Ringers 1,000 ML 100 ML IVCONT (05:17)
[2022-10-09] MEDS: Aspirin 325 MG TABLET PO (07:15)
[2022-10-09] MEDS: hydroCHLOROthiazide 25 MG TABLET PO (07:15)
[2022-10-09] MEDS: oxyCODONE HCl ER 10 MG TAB.ER.12H PO (07:16)
[2022-10-09] MEDS: Celecoxib 200 MG CAPSULE PO (07:16)
[2022-10-09 07:31] VITALS: BP 130/60; PULSE 85; RESP 16; TEMP 36.4; O2SAT 94
--- NOTE | 2022-10-09 08:14 | PM.DS ---
DS: Providers Provider Date of Service: 10/09/22 Date of admission: 10/07/22 10:00 Primary care physician: Mumtaz Menendez MD Consults: 10/07/22 15:08 Consult to Hospitalist Routine Comment: Consulting Provider: Hospitalist Reason For Exam: routine medical management DS: Diagnosis Discharge Diagnosis (1) Status post total left knee replacement: Status: Acute DS: Summary Hospital Course Hospital Course: The patient underwent a successful left total knee arthroplasty, they were transferred to PACU and then to the floor to recover. During their stay, their vitals were stable, afebrile at 97.6. Labs were unremarkable, H/H 12.0/34.8. POD 1 they were started on Aspirin 325mg po bid for DVT ppx, they also received Physical Therapy services twice a day. Prior to discharge, their dressing was changed, incision clean dry and intact, new Aquacel dressing applied and the plan was to be discharged home with VNA services. Time Spent with Patient Time attestation: Total time managing care of this patient today ____ minutes. Discharge coordination time: Less than 30 minutes Quality: Safe Use of Opioids Does Pt have an Active Cancer Diagnosis on the Problem List?: No Quality: Stroke Does the patient have a stroke diagnosis?: No Physical Exam Vital Signs: Vital Signs: Last Vital Signs Temp 97.6 F 10/09/22 07:31 Pulse 85 10/09/22 07:31 Resp 16 10/09/22 07:31 BP 130/60 10/09/22 07:31 Pulse Ox 94 10/09/22 07:31 O2 Del Method Room Air 10/09/22 07:31 O2 Flow Rate 96 10/08/22 11:39 BMI result Body Mass Index 36.8 Const: General: cooperative, healthy appearing and no acute distress Resp: Effort & Inspection: normal respiratory effort and able to speak in complete sentences Cardio: Rate: regular rate Peripheral pulses: Peripheral pulses 2+ throughout GI: Palpation (GI): Soft to palpation Skin: Lesions: no lesions Rashes: no rashes Extrem: Other: Left knee Aquacel is c/d/i. Able to dorsi/plantar flex. Half Way intact. No drainage. NVI. DS: Data Data Completed and Pending Completed studies during hospitalization [Text1]: Procedures Replacement of Right Knee Joint with Synthetic Substitute, Uncemented, Open Approach (11/25/21) Pending studies at discharge: Pending at discharge 10/07/22 13:27 Surgical [PTH] Routine Labs on day of discharge: Laboratory Results - last 24 hr 10/09/22 10/09/22 03:44 03:44 WBC 10.8 RBC 3.99 L Hgb 12.0 L Hct 34.8 L MCV 87.2 MCH 30.1 MCHC 34.5 RDW 11.6 Plt Count 211 MPV 10.4 Immature Gran % (Auto) 0.5 H Neut % (Auto) 72.0 Lymph % (Auto) 14.8 L [place] % (Auto) 9.7 Eos % (Auto) 2.7 Baso % (Auto) 0.3 Lymph # (Auto) 1.6 [place] # (Auto) 1.1 Eos # (Auto) 0.3 Baso # (Auto) 0.0 Abs Immat Gran (auto) 0.05 H Absolute Neuts (auto) 7.8 Absolute Nucleated RBC 0.000 Nucleated RBC % (auto) 0.0 Sodium 134 L Potassium 3.5 Chloride 98 Carbon Dioxide 29 Anion Gap 11 L BUN 13 Creatinine 1.13 Estim Creat Clear Calc 107.1 Estimated GFR > 60 Fasting Glucose 140 H Calcium 8.6 Discharge Plan Discharge Anticipated Discharge Date/Time: 10/09/22 08:10 Patient Disposition: Home Health Service Discharge Diagnosis: s/p LTKA Referrals: Lili Gaines PA-C [Physician Temporary Administrative Assistant] - 10/22/22 1:15 pm Discharge Medications: New celecoxib 200 mg Capsule 200 mg PO BID 30 Days Qty: 60 0RF acetaminophen 325 mg Tablet 650 mg PO Q6H PRN (Reason: Pain, Mild (Pain Scale 1-3)) 30 Days Qty: 240 0RF aspirin 325 mg Tablet 325 mg PO BID 42 Days Qty: 84 0RF oxycodone 10 mg tablet 10 mg PO Q4H PRN (Reason: Pain, Moderate (Pain Scale 4-6) 7 Days Qty: 42 0RF Rx Instructions: Partial Fill upon patient request. Continued (PIOTR) phill Mercer See Rx Instructions .MEDSUPPLY Qty: 1 0RF Rx Instructions: Folding Front wheeled walker fluticasone propionate 50 mcg/actuation spray,suspension 1 spray intranasal DAILY olmesartan 5 mg tablet 1 tab PO QAM albuterol sulfate [Ventolin HFA] 90 mcg/actuation HFA aerosol inhaler 2 puff inhalation Q4H PRN (Reason: wheezing) hydrochlorothiazide 25 mg tablet 25 mg PO QAM Discontinued celecoxib 200 mg capsule 200 mg PO BID 30 Days Qty: 60 3RF acetaminophen 325 mg Tablet 650 mg PO Q6H PRN (Reason: Pain, Mild (Pain Scale 1-3)) 30 Days Qty: 240 0RF Discharge Orders: Discharge Order (Routine); Ordered 10/09/22 Ordered By: Lili Gaines Diet: Advance to usual diet Activity on Discharge: Use cane or walker Stand Alone Forms: Patient Portal Discharge page Care Plan Goals: Restore fxn to left knee Health Concerns: None Plan of Treatment: Physical Therapy for ROM 0-120, quad strength, gait training. Use walker for ambulation Limit stair climbing, No shower, No tub bath, No driving Continue anticoagulant (Aspirin) x 6 weeks Keep Aquacel dressing clean, dry and intact. Follow up with orthopedics in 2 weeks Assessment: Stable for d/c
--- NOTE | 2022-10-09 08:15 | P.F2F_ITS ---
Service Date Service Date: 10/09/22 Encounter Date of encounter: 10/09/22 Reasons for Services Signs and symptoms assessed: s/p ltka. Pt. is considered homebound due to recent surgery. Unable to drive, poor balance, poor gait mechanics. Reason for physical therapy: home safety and mobility, therapeutic exercises, restore joint function, gait/transfer training and ADL training Homebound: Leaving the home is medically contraindicated at this time without the asist of a device and/or another person due th the listed conditions above and below. Reason homebound: unsteady gait / fall risk, leg weakness, pain with ambulation, pain with transfers, poor balance / fall risk and unable to drive Certification: Based on the above findings, I certify that this patient is confined to the home and needs intermittent [facility] care, physical therapy and/or speech t herapy, or continues to need occupational therapy. The patient is under my care, and I have initiated the establishment of the plan of care. The patient will be followed by a physician who will periodically review the plan of care. Time Spent With Patient Time: Total time managing care of this patient today ____ minutes.
[2022-10-09] MEDS: Valsartan 40 MG TABLET 20 MG PO (08:31)
[2022-10-09 08:56] VITALS: BP 130/60; PULSE 85; O2SAT 94
[2022-10-09 11:37] VITALS: BP 137/71; PULSE 92; RESP 20; TEMP 36.9; O2SAT 97
--- NOTE | 2022-10-12 15:04 | W.PM.OPN ---
Operative Note Operative Note Date of Service: 10/07/22 Narrative: Date of Service: 10/07/22 Pre-op diagnosis: Left knee OA Post-op diagnosis: same Procedure: Left TKA Implants: [employer] Triathlon press fit cruciate retaining 09/17/11 Surgeon: Rhys Nicolas MD Anesthesia: regional Was an Client Renewal Specialist used for this Procedure?: Yes Client Renewal Specialist: Lili Gaines Estimated blood loss (mL): 200 IV fluids (mL): 1,000 Pathology: other Condition: stable Disposition: PACU Procedure in detail: The patient was brought to the operating room and prepped and draped in standard sterile fashion. A time-out was called to identify proper site proper procedure proper surgeon and IV antibiotics were administered. 1 g of IV tranexamic acid was administered. I began by making a midline incision to the retinaculum and performed a medial parapatellar arthrotomy. The patella was translated laterally and the knee was flexed up. There was medial compartment eburnation . I performed a small medial peel and resected the infrapatellar fat pad. [place]'s line was then used to drill my intramedullary femoral guide and my distal femur cut of 10 mm was made in 5 degrees of valgus while protecting the soft tissues. I then measured a # 4 femur and placed my cutting guide and made my anterior posterior and chamfer cuts protecting the soft tissues at all times. Once I was satisfied with my cuts I turned my attention to the tibia. I removed the meniscus medially and laterally and , using an external cutting guide, in line with the tibial crest and the third ray, I made my distal tibial cut in 3 deg slope of while protecting the PCL the posterior soft tissues at all times. An extension block was used to confirm appropriate amount of bony resection. I then sized a #5 tibia and once I was satisfied that there was complete tibial coverage I placed my trial and with the trial femur in place took the knee through range of motion. I was satisfied with the extension and flexion as well as the stability and balance at 0, 30 and 90 degrees. I then turned my attention to the patella where I removed 1 cm from the undersurface of the patella and then trialed a 35a patellar button. Again the knee was taken through range of motion I was satisfied with the tracking. I then returned to the femur and drilled my femoral lug holes and prepared the tibia. A femoral bone plug was placed and the knee was irrigated copiously. I then press fit the patella, tibia and femur in standard fashion. I trialed different inserts until I selected a 12mm insert. The final insert was placed and a 3 minutes iodine soak with local TXA was performed. A Werewolf cautery wand was used to maintain hemostasis over the capsule and meniscal beds, the gutters and peripatellar soft tissues. The knee was then closed with a running Quill suture, a 3 0 Vicryl and michelle on the skin. Patient was then placed in sterile dressing and brought to recovery room in stable condition there were no known complications.
== END 2022-10-09 12:43 | disposition home health service (06) | DRG 326 ==
LOC: HO.SSSA 10:17 → HO.S3 14:36
PROVIDERS: Physician Assistant; Admitting Provider Orthopaedic Surgery; PCP Internal Medicine; Visit Provider Orthopaedic Surgery
PROC: 0SRD0JA Replacement of Left Knee Joint with Synthetic Substitute, Uncemented, Open Approach (ICD-10-PCS; CPT 27447; principal; 2022-10-07 11:50)
DX: M17.12 Unilateral primary osteoarthritis, left knee (principal); G89.18 Other acute postprocedural pain; I10 Essential (primary) hypertension; R73.03 Prediabetes; J45.30 Mild persistent asthma, uncomplicated; Z79.51 Long term (current) use of inhaled steroids; Z79.899 Other long term (current) drug therapy
CPT/HCPCS: 36415; 80048; 85014; 85018; 85025; 86850; 86900; 86901; 87640; 87641; 88305; 88311; 97110; 97116; 97161; C1776; J0131; J0690; J1170; J2250; J2405; J2550; J2795

== ENCOUNTER → 2022-10-19 08:53 | Outpatient (BNVA) | payer MEDICAID, SELFPAY | PROVIDERS: PCP Internal Medicine; Visit Provider Physician Assistant | DX: M17.11 Unilateral primary osteoarthritis, right knee (principal); Z96.652 Presence of left artificial knee joint | CPT/HCPCS: 99212 ==

== ENCOUNTER → 2022-10-22 12:03 | Outpatient (BNVA) | payer MEDICAID, SELFPAY | PROVIDERS: PCP Internal Medicine; Visit Provider Physician Assistant | DX: M17.11 Unilateral primary osteoarthritis, right knee (principal); Z96.652 Presence of left artificial knee joint; Z79.891 Long term (current) use of opiate analgesic | CPT/HCPCS: 99212 ==

== ENCOUNTER 2022-11-20 09:02 | Outpatient (REF) | payer MEDICAID, SELFPAY ==
--- NOTE | ~2022-11-20 | XR_ITS ---
EXAMINATION: Bilateral knee x-ray CLINICAL INFORMATION: Pain COMPARISON: Previous x-ray most recent February 2022 TECHNIQUE: Standing AP view of both knees and lateral and sunrise view of the left knee FINDINGS: Left: There is a 3 component left knee replacement in satisfactory position. No fracture, dislocation or x-ray evidence of loosening. Moderate joint effusion. Soft tissue swelling over the anterior knee. Standing AP view of the right knee demonstrate a 3 component right knee replacement in satisfactory position. XR/XR knee LT 2V IMPRESSION: Satisfactory appearance of bilateral knee replacements. Moderate left knee joint effusion and soft tissue swelling over the anterior knee.
--- NOTE | ~2022-11-20 | XR_ITS ---
EXAMINATION: Bilateral knee x-ray CLINICAL INFORMATION: Pain COMPARISON: Previous x-ray most recent February 2022 TECHNIQUE: Standing AP view of both knees and lateral and sunrise view of the left knee FINDINGS: Left: There is a 3 component left knee replacement in satisfactory position. No fracture, dislocation or x-ray evidence of loosening. Moderate joint effusion. Soft tissue swelling over the anterior knee. Standing AP view of the right knee demonstrate a 3 component right knee replacement in satisfactory position. XR/XR knee standing BI IMPRESSION: Satisfactory appearance of bilateral knee replacements. Moderate left knee joint effusion and soft tissue swelling over the anterior knee.
== END 2022-11-20 09:03 | disposition home or self-care (01) ==
LOC: HO.HOSX 09:02
PROVIDERS: Visit Provider Physician Assistant
DX: Z96.653 Presence of artificial knee joint, bilateral (principal)
CPT/HCPCS: 73560; 73565; 99212

== ENCOUNTER 2022-12-08 10:00 | Outpatient (RCR) | payer MEDICAID, SELFPAY ==
--- NOTE | 2022-10-28 15:59 | MHC.PT.EP ---
[facility] [place] Office [place] Office [place] Office [address] Gautam Hernandez 140 [facility] [phone] F: [phone] F: [phone] F: [phone] F: [phone] Physical Therapy Plan of Care Date of Evaluation: Date of Surgery: 10/07/22 Diagnosis: L TKR Assessment: 56 y/o male s/p L TKR by Dr. Nicolas on 10/07/22. Pt presenting with ROM L knee 0-9-110 degrees, decreased quad strength, pitting edema of L lower leg (1+), decreased quad control, impaired hip strength, pain, altered gait pattern and current need for RW due to feeling of weakness/lack of confidence in knee joint, decreased knee joint proprioception, and mild postural deficits. Incision is fairly well approximated with the exception of 1.5-2cm length aspect at mid-distal incision (slightly less approximation); scabbing at distal aspect of incision. Sensation intact. Pt will benefit from skilled outpatient PT services 2x/week for 4-6 weeks in order to reduce impairments, improve functional limitations, and meet goals including reduce pain and ambulate with LRAD to return to PLOF. LEFI: . Frequency and Duration: The patient will be seen 2x/week for 6 weeks Short Term Goals: -Restore full knee ROM 0-120/125 degrees within 3 weeks. (IE: 0-9-110) -Demonstrate the ability to ambulate with a SPC consistently and safely in 3 weeks (IE: walker use) -Demonstrate the ability to perform SLR exercise without knee extension lag in 3 weeks. (IE: unable to perform SLR) Chcf Goals: -Restore full strength of the knee and hip musculature in 6 weeks (IE: see objective measures in eval) -Report less than 3/10 pain consistently (IE: 7/10) Treatment Plan: Modalities to reduce pain, spasms and effusion. Manual therapy to restore motion and function. Therapeutic exercise to improve strength and flexibility. Neuromuscular re-education for posture and balance. Therapeutic activities to return to functional activities of daily living. Total knee replacement protocol Electronically signed by: Soni Mina, DPT Please sign and return to therapist. Thank you for your referral.
--- NOTE | 2022-12-08 11:05 | MHC.PT.DC ---
[facility] [place] Office [place] Office [place] Office [address] Gautam Hernandez [address] [facility] [phone] F: [phone] F: [phone] F: [phone] F: [phone] Physical Therapy Discharge Report Diagnosis: L TKR Date of Surgery: 10/07/22 Date of Evaluation: 10/28/22 Date of Discharge: 12/08/22 Treatments to Date: 13 Cancellations to Date: 0 No Shows to Date: 0 Discharge Status: Achieved Goals Improved Function Independent with HEP Discharge Summary: Pt HAS MET HIS PT GOALS AT THIS TIME, EVIDENT IN IMPROVED LEFI SCORE FROM 0/80 AT HIS EVAL , TO 40/80 TODAY AT DISCHARGE. THE Pt HAS 0*- 130* AROM IN LEFT KNEE AND HAS MET HIS FUNCTIONAL STRENGTH GOALS. WE HAVE DILIGENTLY EDUC THE Pt ON HEP PROGRESSION AND COMPLIANCY FOR ULTIMATE POST-OP OUTCOME. HE IS DISCHARGED THIS DATE, HAVING MET HIS PT GOALS. Electronically signed by: JEAN OCONENLL,PT Please sign and return to therapist. Thank you for your referral.
== END 2022-12-08 11:05 | disposition home or self-care (01) ==
LOC: HO.PT 10:00
PROVIDERS: PCP Internal Medicine; Visit Provider Orthopaedic Surgery
DX: Z96.653 Presence of artificial knee joint, bilateral (principal)
CPT/HCPCS: 97110; 97112; 97161; 97530

== ENCOUNTER 2023-01-01 09:37 | Outpatient (REF) | payer MEDICAID, SELFPAY ==
--- NOTE | ~2023-01-01 | XR_ITS ---
EXAMINATION: STANDING FRONTAL VIEW OF BOTH KNEES LATERAL AND PATELLAR VIEW LEFT KNEE CLINICAL INFORMATION: Pain COMPARISON: 11/20/22 TECHNIQUE: Standing frontal view of both knees. Lateral view left knee. Patellar view left knee FINDINGS: Previous bilateral knee replacement with patellar resurfacing on the right. The hardware appears intact and is appropriately positioned. No definite opaque cement. No fracture, suspicious focal lesion or periosteal new bone. There is soft tissue swelling around the left knee. This appears to have increased. There is trace density ventral to the femoral component in the lateral projection. This is likely unchanged. XR/XR knee LT 2V IMPRESSION: 1. Previous bilateral knee replacement. No acute fracture or subluxation. 2. There is soft tissue swelling around the left knee. This appears to have increased.
--- NOTE | ~2023-01-01 | XR_ITS ---
EXAMINATION: STANDING FRONTAL VIEW OF BOTH KNEES LATERAL AND PATELLAR VIEW LEFT KNEE CLINICAL INFORMATION: Pain COMPARISON: 11/20/22 TECHNIQUE: Standing frontal view of both knees. Lateral view left knee. Patellar view left knee FINDINGS: Previous bilateral knee replacement with patellar resurfacing on the right. The hardware appears intact and is appropriately positioned. No definite opaque cement. No fracture, suspicious focal lesion or periosteal new bone. There is soft tissue swelling around the left knee. This appears to have increased. There is trace density ventral to the femoral component in the lateral projection. This is likely unchanged. XR/XR knee standing BI IMPRESSION: 1. Previous bilateral knee replacement. No acute fracture or subluxation. 2. There is soft tissue swelling around the left knee. This appears to have increased.
== END 2023-01-01 09:38 | disposition home or self-care (01) ==
LOC: HO.HOSX 09:37
PROVIDERS: Visit Provider Orthopaedic Surgery
DX: Z47.1 Aftercare following joint replacement surgery (principal); Z96.653 Presence of artificial knee joint, bilateral
CPT/HCPCS: 73560; 73565

== ENCOUNTER 2023-01-01 10:39 | Outpatient (AMB) | payer MEDICAID, SELFPAY ==
--- NOTE | 2023-01-01 11:24 | A.OFFVIS_ITS ---
Intake Intake Visit Reasons: Postop-LT TKA 10/07/22 NE-w/Xrays Intake Note: Romario is a 57 year old male who presnets today for a post operative appointment s/p Left TKA 10/07/22. Patient reports that he has pain and tightness in the knee when he stands up from sitting position. He feels a cramping pain in the back of the knee. He was given Meloxicam by his PCP for his pain but this does not help. He is also taking celebrex which is not helping. Allergies No Known Allergies [No Known Allergies*] Allergy (Verified 11/20/22 10:14) HPI Postop-LT TKA 10/07/22 NE-w/Xrays HPI Details Romario is a 56 year old man who presents ~3 months S/P left TKA. He complains of pain in his left knee, which has not been improving. He says his worst pain is standing from a seated position, along with a painful cramping feeling in the back of his knee. He says his PCP has given him Meloxicam, which he says does not touch his pain. He found some relief from Motrin in the past. He has been working with PT on his ROM, which is going well. ? He says he has an upcoming surgery soon [facility] Medical History Asthma High blood pressure Osteoarthritis of right knee Prediabetes Varicose veins of legs Surgical History History of incision and drainage History of total right knee replacement History of umbilical hernia repair Hx of colonoscopy Social History Household Members: Family Housing: Apartment Are you a primary rn coronary care unit to a significant other at home: No Do you presently have visiting nurse or other home services: No Patient Tobacco Use Status: Never used Tobacco Second Hand Smoke Exposure: No service: No Current occupational status: employed 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 Review of Systems Const All systems reviewed & are unremarkable except as noted in HPI and below Physical Exam Const General: no acute distress and alert Orientation/consciousness: patient oriented x3 Neuro General: patient oriented x3 Extrem Other: Left knee: Well-healed incision 0-130 degrees ROM Mild effusion Psych Appearance: grossly normal Affect: normal affect Attitude: cooperative Assessment & Plan Assessment & Plan (1) Status post total left knee replacement: Comment: 10/07/2022 NE Code(s): Z96.652 - Presence of left artificial knee joint Plan: This is a 56 year old man S/P left TKA, DOS: 10/07/22. He continues to have pain with daily activity, with no relief from NSAIDs such as meloxicam. His ROM is good and he continues to work with PT. I recommend stronger NSAIDs & RICE. He w ill continue to work with PT on ROM and strengthening, and ice his knee throughout the day to manage his swelling. I prescribed Motrin for him to take and Abx to take prior to his upcoming surgery. He can follow up 6 mo (2) Status post total right knee replacement: Code(s): Z96.651 - Presence of right artificial knee joint Plan: S/P right TKA, DOS: 11/25/21 & right knee I&D with capsular closure, DOS: 01/13/22. Doing well and is happy with the results of his surgery. Orders: Orders XR knee LT 2V Today M25.569 - Pain in unspecified knee XR knee standing BI Today M25.569 - Pain in unspecified knee Medications: New ibuprofen 600 mg PO Q8H PRN 90 tabs 0RF pain Coding Level of Care Code Global (76123) Diagnoses Status post total left knee replacement Z96.652 Status post total right knee replacement Z96.651
== END 2023-01-01 11:55 | disposition home or self-care (01) ==
PROVIDERS: PCP Internal Medicine; Visit Provider Orthopaedic Surgery
DX: Z96.652 Presence of left artificial knee joint (principal); Z96.651 Presence of right artificial knee joint
CPT/HCPCS: 99024

== ENCOUNTER 2023-03-24 07:41 | Outpatient (REF) | payer MEDICAID, SELFPAY | END 2023-03-24 07:42 | disposition home or self-care (01) | LOC: HO.XRAY 07:41 | PROVIDERS: Visit Provider Physician Assistant | DX: Z13.89 Encounter for screening for other disorder (principal) ==

== ENCOUNTER 2023-04-23 10:12 | Outpatient (AMB) | payer MEDICAID, SELFPAY ==
--- NOTE | 2023-04-23 10:46 | MHC.OFFVIS ---
Intake Intake Visit Reasons: Postop-LT TKA 10/07/22 NE- Intake Note: Romario is a 57 year old male who presents today for a follow up of his left knee s/p Left TKA 10/07/22. Patient complains of pain and swelling. The knee gives out on him so he uses a cane. Allergies No Known Allergies [No Known Allergies*] Allergy (Verified 11/20/22 10:14) HPI Postop-LT TKA 10/07/22 NE- HPI Details Romario is a 57 year old man who presents ~6 months S/P left TKA. He complains of pain in his left knee, which has not been improving. He says his worst pain is standing from a seated position, along with a painful cramping feeling in the back of his knee. He feels his pain and swelling have worsened recently and his knee gives out on him. He now walks using a cane as he is afraid of falling. He has been working with PT on his ROM, which is going well. [facility] Medical History Asthma High blood pressure Osteoarthritis of right knee Prediabetes Varicose veins of legs Surgical History History of incision and drainage History of total right knee replacement History of umbilical hernia repair Hx of colonoscopy Social History Household Members: Family Housing: Apartment Are you a primary customer care specialist to a significant other at home: No Do you presently have visiting nurse or other home services: No Patient Tobacco Use Status: Never used Tobacco Second Hand Smoke Exposure: No service: No Current occupational status: employed 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 Left total knee arthroplasty in expected post operative position with no hardware complications or evidence of loosening Assessment & Plan Assessment & Plan (1) Status post total left knee replacement: Comment: 10/07/2022 NE Code(s): Z96.652 - Presence of left artificial knee joint Plan: This is a 57 year old man S/P left TKA, DOS: 10/07/22. He is improving slowly. His left quad is weak and he is not exercising. I recommend Strengthening, NSAIDS, ICE. He expressed understanding (2) Status post total right knee replacement: Code(s): Z96.651 - Presence of right artificial knee joint Plan: S/P right TKA, DOS: 11/25/21 & right knee I&D with capsular closure, DOS: 01/13/22. Doing well and is happy with the results of his surgery. Coding Level of Care Code Est Pt Level 3 (99486) Diagnoses Status post total left knee replacement Z96.652 Status post total right knee replacement Z96.651
== END 2023-04-23 11:25 | disposition home or self-care (01) ==
PROVIDERS: PCP Internal Medicine; Visit Provider Orthopaedic Surgery
DX: Z47.1 Aftercare following joint replacement surgery (principal); Z96.653 Presence of artificial knee joint, bilateral
CPT/HCPCS: 99213

== ENCOUNTER → 2023-04-23 10:12 | Outpatient (BNVA) | payer MEDICAID, SELFPAY | PROVIDERS: PCP Internal Medicine; Visit Provider Orthopaedic Surgery | DX: Z96.652 Presence of left artificial knee joint (principal); Z96.651 Presence of right artificial knee joint | CPT/HCPCS: 99212 ==